=== PATIENT | female | born 1930 | race Caucasian/White ===

== ENCOUNTER 2016-11-25 12:07 | Inpatient (IN) | payer OTHER ==
[2016-11-25] MEDS ORDERED: KETOROLAC TROMETHAMINE 60 MG/2 ML VIAL IM ONE (12:24)
--- NOTE | 2016-11-25 12:25 | PDOC ---
History of Present Illness - General Chief Complaint: Injury Stated Complaint: left knee pain Time Seen by Provider: 11/25/16 12:15 - History of Present Illness Initial Comments: 11/25/16 13:49 Chief complaint: Left knee pain History of present illness: Patient tripped and fell this morning, injuring her left knee. She was unable to arise and walk, so she dragged herself along the floor and called 911. There was no loss of consciousness. There was no subsequent confusion, probably bladder incontinence, head or neck pain. Review of systems: Denies any other injuries or pain including injuries or pain to the head neck chest abdomen spine and pelvis or other extremities. Denies chest pain, shortness of breath, abdominal pain, nausea, vomiting, diarrhea, visual or focal neurologic symptoms, unsteadiness of gait, vaginal bleeding or discharge, urinary tract symptoms Past medical history: Knee replacement, hip replacement, arthritis with chronic pain, high blood pressure, elevated cholesterol, mood disorder Medications: Losartan, atenolol, Lipitor, allopurinol, hydralazine, pramipexole , allopurinol, regular strength aspirin, gabapentin, tramadol, vitamins Social history: Lives alone, cares for self, ambulate adequately. No alcohol or tobacco, or nonprescription drugs Family history: Reviewed and noncontributory including bone and joint disease, early coronary artery disease, metabolic disease including diabetes, and cancer. Exam: Alert and oriented 3, well-developed well-nourished, moderate distress due to pain in the left knee, but cooperative Afebrile, vital signs stable Head atraumatic. PERRLA, fundi benign, ENT clear Neck supple without bruit mass or nodes. No point tenderness of the cervical spine, good range of motion without pain Chest clear to P&A. No chest wall or rib cage tenderness or deformity CV S1 and S2 distant 2/6 systolic ejection murmur left sternal border without radiation pulses full and JVD or edema Abdomen benign Neurological generalized weakness but no focal sensory or motor deficits. Cranial nerves intact. Unable to ambulate due to pain in the left knee Skin clear, no rash, adequate turgor and what mucous membranes Extremities: There is shortening and external rotation of the left lower extremity. There is a scar over the knee suggestive of a prior knee replacement. There is swelling and tenderness over the distal femur just above the knee. The extensor mechanism appears to be disrupted above the knee. Pulses are full below the knee. The foot is warm. There are no sensory or motor deficits below the knee Impression: Probable distal femur fracture at site of prosthetic device. Plan: X-ray and further orthopedic management depending on results. 11/25/16 13:56 Past History - Past Medical History Allergies/Adverse Reactions: Allergies Allergy/AdvReac Type Severity Reaction Status Date / Time No Known Allergies Allergy Verified 05/01/16 09:10 Home Medications: Ambulatory Orders Atenolol [Tenormin -] 50 mg PO BID #0 tablet 07/26/13 Atorvastatin Ca [Lipitor] 10 mg PO HS #0 tablet 09/13/13 Paroxetine HCl [Paxil -] 20 mg PO DAILY #0 tablet 09/13/13 Losartan Potassium 50 mg PO BID 04/21/16 Allopurinol [Zyloprim -] 100 mg PO DAILY 11/25/16 Aspirin [ASA -] 325 mg PO DAILY 11/25/16 Gabapentin [Neurontin -] 100 mg PO HS 11/25/16 Hydralazine HCl [Apresoline -] 50 mg PO BID 11/25/16 [place] Xl 2 cap PO DAILY 11/25/16 Pramipexole Di-HCl [Mirapex] 0.5 mg PO DAILY 11/25/16 Tramadol HCl [Ultram] 50 mg PO TID 11/25/16 Vits A,C,E/Lutein/Minerals [Ocuvite Tablet] 1 each PO DAILY 11/25/16 Anemia: Yes (arthritis) Asthma: No Cancer: No Cardiac Disorders: No CVA: No COPD: No CHF: No Dementia: No Diabetes: No GI Disorders: No Disorders: No HTN: Yes Hypercholesterolemia: Yes Liver Disease: No Psychiatric Problems: Yes (ANXIETY.) Seizures: No Thyroid Disease: No - Surgical History Abdominal Surgery: No Appendectomy: No Cardiac Surgery: No Cholecystectomy: No Lung Surgery: No Neurologic Surgery: No Orthopedic Surgery: Yes (Shoulder/left knee) - Immunization History Immunization Up to Date: Yes - Psycho/Social/Smoking Cessation Hx Anxiety: No Suicidal Ideation: No Smoking Status: No Smoking History: Never smoked Have you smoked in the past 12 months: No Number of Cigarettes Smoked Daily: 0 Hx Alcohol Use: No Drug/Substance Use Hx: No Substance Use Type: Alcohol Hx Substance Use Treatment: No ED Treatment Course - LABORATORY CBC & Chemistry Diagram: 11/25/16 13:40 11/25/16 13:40 Medical Decision Making - Medical Decision Making 11/25/16 13:38 X-ray reveals a fracture of the distal femur just above the knee prosthesis. There is angulation. The fracture is closed. Dr. Wei, the patient's orthopedist, was contacted by phone. He recommends gentle traction and application of a knee immobilizer. He will see patient later in the day and discuss the options for surgery Gentle traction was applied to the calf and a knee immobilizer was placed in position. It is not an optimal fit due to the circumference of the patient's thigh, but it holds the knee in neutral position, and was utilized along with an Alex bandage. After splinting, the patient was completely comfortable, reporting no distal numbness tingling or pain. Distal pulses were full. The foot was warm. There were no demonstrable sensory or motor deficits. Dr. Franz the patient's primary physician, was contacted by phone. He recommends contacting Dr. Glass for admission. Dr. Glass was paged. Awaiting response 11/25/16 13:47 11/25/16 14:01 returned the call. He requests the patient be admitted to the hospitalist *DC/Admit/Observation/Transfer Diagnosis at time of Disposition: Fracture, femur, distal Qualifiers: Encounter type: initial encounter Fracture type: closed Fracture morphology: other fracture Laterality: left Qualified Code(s): S72.492A - Other fracture of lower end of left femur, initial encounter for closed fracture - Discharge Dispostion Admit: Yes
[2016-11-25] MEDS ORDERED: KETOROLAC TROMETHAMINE 30 MG/1 ML VIAL ONE (12:27)
[2016-11-25 14:16] LABS: EOSINOPHIL 0.5 % (0-4.5); MCH 28.4 pg (25.7-33.7); MEAN PLT VOLUME 9.7 fl (7.5-11.1); NEUTROPHILS 83.4 % (42.8-82.8); PLATELET COUNT 229 K/MM3 (134-434); RDW 14.9 % (11.6-15.6)
[2016-11-25 14:19] LABS: ALBUMIN 4.3 g/dl (3.5-5.0); ALK PHOS 86 U/L (32-92); ANION GAP 6 (8-16); CALCIUM 9.6 mg/dl (8.4-10.2); CO2 24 mmol/L (22-28); GLUCOSE,RANDOM 113 mg/dl (74-106); SGOT/AST 36 U/L (10-42); SGPT/ALT 17 U/L (10-40); TOT PROT 7.5 g/dl (6.4-8.3)
[2016-11-25] MEDS ORDERED: ACETAMINOPHEN 325 MG TABLET (FP) PO PRN (14:20)
[2016-11-25] MEDS ORDERED: ONDANSETRON 4 MG/2 ML VIAL IVPB PRN (14:20)
[2016-11-25 14:21] LABS: BILIRUBIN,TOTAL < 0.3 mg/dl (0.2-1.0)
--- NOTE | 2016-11-25 14:35 | CONSULT ---
Consult - text type - Consultation Consultation Note: Ortho full consult dictated by Dr. Rowan a/p- OR tomorrow for distal femur replacement NPO Surgical clearance
[2016-11-25] MEDS ORDERED: ACETAMINOPHEN 325 MG TABLET (FP) PO ONE (14:42)
[2016-11-25 17:55] LABS: INR 1.06 (0.82-1.09); PROTHROMBIN TIME (PATIENT) 11.9 SEC (10.2-13.0)
--- NOTE | 2016-11-25 18:08 | CONS ---
DATE OF CONSULTATION:11/25/2016 DATE OF DICTATION: 11/25/2016 EMERGENCY ROOM ORTHOPEDIC CONSULTATION REASON FOR CONSULTATION: Orthopedic emergency room consultation/[facility]. HISTORY OF PRESENT ILLNESS: Patient is an 86-year-old female well known to our practice. Patient is status post left total knee replacement done by Dr. Barry approximately 4 years ago. Patient slipped and fell, and today is complaining of severe pain in her left knee. She was taken by EMS to [facility] emergency room where orthopedic consultation was performed. Patient has been in relatively good medical shape and has seen her medical doctor last week. On no anticoagulation. PHYSICAL EXAMINATION: She has soft, nontender. Good motion of her ankle and toes, neurovascularly intact. No tenderness up in the pelvis, the hip region. Marked increased pain with any range of motion of her left knee. X-rays taken today in the emergency room show a left distal periprosthetic distal femur fracture just right above the femoral component. IMPRESSION: Left distal periprosthetic femur fracture just above the component. PLAN: Due to the fact that there is minimal if any bone adherent to the distal femoral component, best option is a distal femoral replacement surgery. Discussed risks, benefits, and alternatives with the patient in detail. The patient is eager to go forward with the operation tomorrow to optimize her and will book her for surgery tomorrow. KYUNG GILBERT M.D. [id number] MTDD
[2016-11-25 18:20] VITALS: BMI 34.7
--- NOTE | 2016-11-25 19:43 | HP ---
CHIEF COMPLAINT: s/p Fall, Left Knee Pain PCP: Dr. Marshall HISTORY OF PRESENT ILLNESS: This is a 86 y/o female with a past medical history of Hypertension, Hyperlipidemia, Anxiety, Arthritis. Who presents to the ED s/p slip and fall with Left knee pain x 3 days. Patient reports while standing her knee began to buckle, causing her to fall. Patient reports being non-weight bearing since the fall. She denies LOC. Patient denies fever, chills, cough, dizziness, CP, AP, N/ V/D, constipation, dysuria. ER course was notable for: (1) Left knee Xray- Left distal periprosthetic distal femur fx (2) BUN 26 (3) WBC 12 Recent Travel: None PAST MEDICAL HISTORY: Hypertension Hyperlipidemia Anxiety Arthritis PAST SURGICAL HISTORY: Left Knee Replacement Social History: Smoking: Never Alcohol: None Drugs: None Lives alone, retired Family History: Mother: HTN Allergies No Known Allergies Allergy (Verified 05/01/16 09:10) HOME MEDICATIONS: Home Medications Medication Instructions Recorded Atenolol [Tenormin -] 50 mg PO BID #0 tablet 07/26/13 Atorvastatin Ca [Lipitor] 10 mg PO HS #0 tablet 09/13/13 Paroxetine HCl [Paxil -] 20 mg PO DAILY #0 tablet 09/13/13 Losartan Potassium 50 mg PO BID 04/21/16 Allopurinol [Zyloprim -] 100 mg PO DAILY 11/25/16 Aspirin [ASA -] 325 mg PO DAILY 11/25/16 Gabapentin [Neurontin -] 100 mg PO HS 11/25/16 Hydralazine HCl [Apresoline -] 50 mg PO BID 11/25/16 [place] Xl 2 cap PO DAILY 11/25/16 Pramipexole Di-HCl [Mirapex] 0.5 mg PO DAILY 11/25/16 Tramadol HCl [Ultram] 50 mg PO TID 11/25/16 Vits A,C,E/Lutein/Minerals 1 each PO DAILY 11/25/16 [Ocuvite Tablet] REVIEW OF SYSTEMS CONSTITUTIONAL: Absent: fever, chills, diaphoresis, generalized weakness, malaise, loss of appetite, weight change HEENT: Absent: rhinorrhea, nasal congestion, throat pain, throat swelling, difficulty swallowing, mouth swelling, ear pain, eye pain, visual changes CARDIOVASCULAR: Absent: chest pain, syncope, palpitations, irregular heart rate, lightheadedness , peripheral edema RESPIRATORY: Absent: cough, shortness of breath, dyspnea with exertion, orthopnea, wheezing, stridor, hemoptysis GASTROINTESTINAL: Absent: abdominal pain, abdominal distension, nausea, vomiting, diarrhea, constipation, melena, hematochezia GENITOURINARY: Absent: dysuria, frequency, urgency, hesitancy, hematuria, flank pain, genital pain MUSCULOSKELETAL: arthralgia, joint swelling, left knee pain Absent: myalgia, back pain, neck pain SKIN: Absent: rash, itching, pallor HEMATOLOGIC/IMMUNOLOGIC: Absent: easy bleeding, easy bruising, lymphadenopathy, frequent infections ENDOCRINE: Absent: unexplained weight gain, unexplained weight loss, heat intolerance, cold intolerance NEUROLOGIC: Absent: headache, focal weakness or paresthesias, dizziness, unsteady gait, seizure, mental status changes, bladder or bowel incontinence PSYCHIATRIC: Absent: anxiety, depression, suicidal or homicidal ideation, hallucinations. PHYSICAL EXAMINATION Vital Signs - 24 hr 11/25/16 11/25/16 17:32 17:50 Temperature 99.1 F 98.4 F Pulse Rate 83 Pulse Rate [ 83 Right] Respiratory 17 18 Rate Blood Pressure 150/58 Blood Pressure 133/70 [Left Arm] O2 Sat by Pulse 96 93 L Oximetry (%) GENERAL: Awake, alert, and fully oriented, in no acute distress. HEAD: Normal with no signs of trauma. EYES: Pupils equal, round and reactive to light, extraocular movements intact, sclera anicteric, conjunctiva clear. No lid lag. EARS, NOSE, THROAT: Ears normal, nares patent, oropharynx clear without exudates. Moist mucous membranes. NECK: Normal range of motion, supple without lymphadenopathy, JVD, or masses. LUNGS: Breath sounds equal, clear to auscultation bilaterally. No wheezes, and no crackles. No accessory muscle use. HEART: Regular rate and rhythm, normal S1 and S2 without murmur, rub or gallop. ABDOMEN: Soft, nontender, not distended, normoactive bowel sounds, no guarding, no rebound, no masses. No hepatomegaly or splenomegaly. MUSCULOSKELETAL: Normal range of motion at RUE, RLE, LUE joints. LROM LLE. No bony deformities. No CVA tenderness. LROM LLE, popiteal tenderness, +external rotation, shortening. UPPER EXTREMITIES: 2+ pulses, warm, well-perfused. No cyanosis. No clubbing. No peripheral edema. LOWER EXTREMITIES: 2+ pulses, warm, well-perfused. No calf tenderness. No peripheral edema. NEUROLOGICAL: Cranial nerves II-XII intact. Normal speech. Normal gait. PSYCHIATRIC: Cooperative. Good eye contact. Appropriate mood and affect. SKIN: Warm, dry, normal turgor, no rashes or lesions noted, normal capillary refill. Laboratory Tests 11/25/16 11/25/16 11/25/16 13:40 13:40 17:26 WBC 12.0 H RBC 5.08 Hgb 14.4 Hct 43.6 MCV 86.0 MCHC 33.0 RDW 14.9 Plt Count 229 MPV 9.7 Neutrophils % 83.4 H Lymphocytes % 9.5 Monocytes % 5.6 Eosinophils % 0.5 Basophils % 1.0 INR 1.06 Sodium 139 Potassium 4.5 Chloride 109 H Carbon Dioxide 24 Anion Gap 6 L BUN 26 H Creatinine 1.0 Creat Clearance w eGFR 52.45 Random Glucose 113 H Calcium 9.6 Total Bilirubin < 0.3 AST 36 ALT 17 Alkaline Phosphatase 86 Total Protein 7.5 Albumin 4.3 Anti-A Titer Blood Type Antibody Screen Spec Expiration Date 11/25/16 17:26 WBC RBC Hgb Hct MCV MCHC RDW Plt Count MPV Neutrophils % Lymphocytes % Monocytes % Eosinophils % Basophils % INR Sodium Potassium Chloride Carbon Dioxide Anion Gap BUN Creatinine Creat Clearance w eGFR Random Glucose Calcium Total Bilirubin AST ALT Alkaline Phosphatase Total Protein Albumin Anti-A Titer Cancelled Blood Type Cancelled Antibody Screen Cancelled Spec Expiration Date Cancelled ASSESSMENT/PLAN: This is a 86 y/o female with a PMHx of: Hypertension, Hyperlipidemia, Arthritis , Anxiety. Presented to the ED s/p Slip and Fall, with left knee pain. Admitted for Left Distal Femur Fracture for further evaluation of their emergent condition. Problem List - Problem (1) Fracture, femur, distal Assessment/Plan: - s/p mechanical fall - Xray L-knee- left distal periprosthetic distal femur fracture - Ortho following- OR in am - NPO after midnight - Gentle IVF - Pain Control-Tylenol, Ultram - Knee Immobilizer- for stability - Monitor vitals - Pulse Check - PT Code(s): S72.409A - UNSP FRACTURE OF LOWER END OF UNSP FEMUR, INIT FOR CLOS FX Qualifiers: Encounter type: initial encounter Fracture type: closed Fracture morphology: other fracture Laterality: left Qualified Code(s): S72.492A - Other fracture of lower end of left femur, initial encounter for closed fracture (2) HTN (hypertension) Assessment/Plan: - Controlled - Monitor BP - Continue Cozaar, Hydralazine Code(s): I10 - ESSENTIAL (PRIMARY) HYPERTENSION (3) HLD (hyperlipidemia) Assessment/Plan: - Continue Lipitor Code(s): E78.5 - HYPERLIPIDEMIA, UNSPECIFIED (4) Anxiety Assessment/Plan: - Continue Paxil Code(s): F41.9 - ANXIETY DISORDER, UNSPECIFIED (5) Arthritis Assessment/Plan: - Continue home med Code(s): M19.90 - UNSPECIFIED OSTEOARTHRITIS, UNSPECIFIED SITE (6) DVT prophylaxis Assessment/Plan: - SCDs Code(s): JME5323 - Visit type - Emergency Visit Emergency Visit: Yes ED Registration Date: 11/25/16 Care time: The patient presented to the Emergency Department on the above date and was hospitalized for further evaluation of their emergent condition. - New Patient This patient is new to me today: Yes Date on this admission: 11/25/16 - Critical Care Critical Care patient: No
[2016-11-25] MEDS: traMADol HCL 50 MG TABLET PO SCH (21:23)
[2016-11-25] MEDS: ATENOLOL 50 MG TABLET (FP) PO SCH (21:24)
[2016-11-25] MEDS: ATORVASTATIN CA 10 MG TABLET (FP) PO SCH (21:24)
[2016-11-25] MEDS: GABAPENTIN 100 MG CAPSULE (FP) PO SCH (21:24)
[2016-11-25] MEDS: hydrALAZINE HCL 50 MG TABLET (FP) PO SCH (21:24)
[2016-11-25] MEDS: LOSARTAN POTASSIUM 50 MG TABLET (FP) PO SCH (21:24)
[2016-11-25 22:07] LABS: PH,URINE 5.5 (4.5-8); URINE APPEARANCE Clear; URINE BILIRUBIN 1+ (NEGATIVE); URINE BLOOD Negative (NEGATIVE); URINE GLUCOSE (UA) Negative (NEGATIVE); URINE KETONE Negative (NEGATIVE); URINE LEUK ESTERASE Negative (NEGATIVE); URINE NITRITE Negative (NEGATIVE); URINE PROTEIN Negative (NEGATIVE); URINE UROBILINOGEN 0.2 E.U/dl (0.2-1.0)
[2016-11-25 22:26] LABS: URINE COLOR YELLOW
[2016-11-25] MEDS ORDERED: morphine CARPU-JECT 2 MG/1 ML DISP.SYRIN IVPUSH ONE (23:54)
[2016-11-26] MEDS: LACTATED RINGERS SOLUTION 1,000 ML IV SCH (01:25)
[2016-11-26] MEDS: traMADol HCL 50 MG TABLET PO SCH ×3 (05:21→21:46)
--- NOTE | 2016-11-26 07:51 | PN ---
Physical Exam: SUBJECTIVE: Patient seen and examined, patient reports pain upon movement of the left lower extremity denies any chest pain or shortness of breath knee immobilizer in place OBJECTIVE: patient is a 86 y/o female with a past medical history of Hypertension, Hyperlipidemia, Anxiety, Arthritis. patient was admitted from the emergency department for distal left femur fracture Vital Signs Period Temp Pulse Resp BP Sys/Barr Pulse Ox Last 24 Hr 98.4 F-99.1 F 82-86 17-20 133-150/57-70 93-96 GENERAL: The patient is awake, alert, and fully oriented, in no acute distress. HEAD: Normal with no signs of trauma. EYES: PERRL, extraocular movements intact, sclera anicteric, conjunctiva clear. No ptosis. ENT: Ears normal, nares patent, oropharynx clear without exudates, moist mucous membranes. NECK: Trachea midline, full range of motion, supple. LUNGS: Breath sounds equal, clear to auscultation bilaterally, no wheezes, no crackles, no accessory muscle use. HEART: Regular rate and rhythm, S1, S2 without murmur, rub or gallop. ABDOMEN: Soft, nontender, nondistended, normoactive bowel sounds, no guarding, no rebound, no hepatosplenomegaly, no masses. EXTREMITIES: 2+ pulses, warm, well-perfused, no edema. LEFT LOWER EXTREMITY: point tenderness noted to left lateral thigh, less than 2 second capillary refill +4 pupils NEUROLOGICAL: Cranial nerves II through XII grossly intact. Normal speech, gait not observed. PSYCH: Normal mood, normal affect. SKIN: Warm, dry, normal turgor, no rashes or lesions noted Laboratory Results - last 24 hr 11/25/16 11/25/16 11/25/16 17:26 17:26 18:28 INR 1.06 Urine Color Urine Appearance Urine pH Ur Specific [place] Urine Protein Urine Glucose (UA) Urine Ketones Urine Blood Urine Nitrite Urine Bilirubin Urine Urobilinogen Ur Leukocyte Esterase Anti-A Titer Cancelled Blood Type Cancelled A POSITIVE Antibody Screen Cancelled Negative Spec Expiration Date Cancelled 11/25/16 21:59 INR Urine Color Yellow Urine Appearance Clear Urine pH 5.5 Ur Specific [place] 1.025 Urine Protein Negative Urine Glucose (UA) Negative Urine Ketones Negative Urine Blood Negative Urine Nitrite Negative Urine Bilirubin 1+ H Urine Urobilinogen 0.2 e.u/dl Ur Leukocyte Esterase Negative Anti-A Titer Blood Type Antibody Screen Spec Expiration Date Active Medications Generic Name Dose Route Start Last Admin Trade Name Freq PRN Reason Stop Dose Admin Acetaminophen 650 mg 11/25/16 14:20 Tylenol - PO Q4H PRN FEVER OR PAIN Allopurinol 100 mg 11/26/16 10:00 Zyloprim - PO DAILY JORDYN Atenolol 50 mg 11/25/16 22:00 11/25/16 21:24 Tenormin - PO 50 mg BID JORDYN Administration Atorvastatin Calcium 10 mg 11/25/16 22:00 11/25/16 21:24 Lipitor - PO 10 mg HS JORDYN Administration Gabapentin 100 mg 11/25/16 22:00 11/25/16 21:24 Neurontin - PO 100 mg HS JORDYN Administration Hydralazine HCl 50 mg 11/25/16 22:00 11/25/16 21:24 Apresoline - PO 50 mg BID JORDYN Administration Lactated Ringer's 1,000 mls @ 42 mls/hr 11/26/16 00:01 11/26/16 01:25 Lactated Ringers Solution IV 42 mls/hr ASDIR JORDYN Administration Losartan Potassium 50 mg 11/25/16 22:00 11/25/16 21:24 Cozaar - PO 50 mg BID JORDYN Administration Non-Formulary Medication 1 each 11/26/16 10:00 Vits A,C,E/Lutein/Minerals [Ocuvite With Lutein Tablet] PO DAILY [facility] Ondansetron HCl 4 mg 11/25/16 14:20 Zofran Injection IVPB Q6H PRN NAUSEA Paroxetine HCl 20 mg 11/26/16 10:00 Paxil - PO DAILY [facility] Pramipexole Dihydrochloride 0.5 mg 11/26/16 10:00 Mirapex - PO DAILY [facility] Tramadol HCl 50 mg 11/25/16 22:00 11/26/16 05:21 Ultram - PO 12/02/16 21:59 Not Given TID JORDYN Imaging Xray L-knee- left distal periprosthetic distal femur fracture ASSESSMENT/PLAN: 1) ortho left distal femur fracture - continue knee immobilizer at all times - Pending OR today in the a.m. (Lent) - continue neurovascular checks - When necessaryUltram 2) card Hypertension -Continue Cozaar and hydralazine -Blood pressure remains at goal hyperlipidemia - lFTs WNL continue Lipitor 3) psych anxiety - continue paxial f/e/n - npo - ivf ppx -protonix - hold AC -->OR - PT as per ortho dispoi: requires inpatient care Visit type - Emergency Visit Emergency Visit: Yes ED Registration Date: 11/25/16 Care time: The patient presented to the Emergency Department on the above date and was hospitalized for further evaluation of their emergent condition. - New Patient This patient is new to me today: Yes Date on this admission: 11/26/16 - Critical Care Critical Care patient: No - Discharge Referral Referred to [facility] Med P.C.: No
[2016-11-26] MEDS ORDERED: DEXAMETHASONE SOD PHOSPHATE/PF 10 MG/ML SDV ONE ×2 (09:51→09:59)
[2016-11-26] MEDS ORDERED: MIDAZOLAM HCL 2 MG/2 ML SINGLE DOSE VIAL ONE ×3 (09:51→11:21)
[2016-11-26] MEDS ORDERED: ceFAZolin SODIUM 1 GM VIAL ONE (09:52)
[2016-11-26] MEDS ORDERED: VANCOMYCIN 1,000 MG VIAL (RESTRICTED TO ID ONLY) ONE (09:52)
[2016-11-26] MEDS ORDERED: ROPIVACAINE HCL 0.5% 30ML VIAL ONE (09:52)
[2016-11-26] MEDS ORDERED: SODIUM CHLORIDE 0.9% P/F 10 ML VIAL IJ ONE (09:52)
[2016-11-26 09:58] LABS: BASOPHIL 0.4 % (0-2.0); EOSINOPHIL 2.8 % (0-4.5); MCH 28.1 pg (25.7-33.7); MCHC 33.1 g/dl (32.0-36.0); MEAN CELL VOLUME 84.9 fl (80-96); MEAN PLT VOLUME 9.5 fl (7.5-11.1); NEUTROPHILS 75.4 % (42.8-82.8); PLATELET COUNT 188 K/MM3 (134-434); RDW 14.9 % (11.6-15.6); WHITE BLOOD COUNT 9.4 K/mm3 (4.0-10.0)
[2016-11-26 10:08] LABS: ALBUMIN 3.6 g/dl (3.5-5.0); BILIRUBIN,TOTAL 0.8 mg/dl (0.2-1.0); CALCIUM 9.1 mg/dl (8.4-10.2); MAGNESIUM 1.9 mg/dL (1.8-2.4); PHOSPHOROUS 3.6 mg/dl (2.5-4.6); TOT PROT 6.5 g/dl (6.4-8.3)
[2016-11-26] MEDS ORDERED: PROPOFOL 20 ML ONE ×2 (10:33)
[2016-11-26] MEDS ORDERED: BUPIVACAINE HCL/PF 0.5% (5MG/ML) 10 ML VIAL ONE (10:34)
[2016-11-26] MEDS: hydrALAZINE HCL 50 MG TABLET (FP) PO SCH ×2 (10:47→21:44)
[2016-11-26] MEDS: PRAMIPEXOLE DIHYDROCHLORIDE 0.25 MG TABLET PO SCH (10:47)
[2016-11-26] MEDS: LOSARTAN POTASSIUM 50 MG TABLET (FP) PO SCH ×2 (10:47→21:44)
[2016-11-26] MEDS: ATENOLOL 50 MG TABLET (FP) PO SCH ×2 (10:48→21:45)
[2016-11-26] MEDS: PARoxetine HCL 20 MG TABLET (FP) PO SCH (10:48)
[2016-11-26] MEDS: ALLOPURINOL 100 MG TABLET (FP) PO SCH (10:48)
[2016-11-26] MEDS ORDERED: VANCOMYCIN 1,000 MG VIAL (RESTRICTED TO ID ONLY) IVPB ONE (12:16)
[2016-11-26] MEDS ORDERED: ROPIVACAINE 0.2% 400ML 400 ML ML NR ONE (12:36)
--- NOTE | 2016-11-26 12:38 | EKG ---
Test Reason : Blood Pressure : / mmHG Vent. Rate : 083 BPM Atrial Rate : 083 BPM P-R Int : 156 ms QRS Dur : 082 ms QT Int : 374 ms P-R-T Axes : 063 030 039 degrees QTc Int : 439 ms POOR DATA QUALITY, INTERPRETATION MAY BE ADVERSELY AFFECTED NORMAL SINUS RHYTHM NORMAL ECG WHEN COMPARED WITH ECG OF 06-SEP-2013 19:53, NO SIGNIFICANT CHANGE WAS FOUND Confirmed by SILVIA TOVAR MD ([id number]) on 11/26/2016 12:37:35 PM Referred By: DR VAZQUEZ Confirmed By:SILVIA TOVAR MD
--- NOTE | 2016-11-26 12:56 | OP ---
Operative Note - Note: Operative Date: 11/26/16 ([email or web address]) Pre-Operative Diagnosis: left periprosthetic distal femur fx Operation: left distal femur replacement Post-Operative Diagnosis: Same as Pre-op Surgeon: Steve Rowan Ski Tow Operator: Tl De La Garza Anesthesiologist/LEAD SYSTEMS ANALYST: Allen Lamar Anesthesia: Spinal, Local Specimens Removed: distal femur with component, tibial component Estimated Blood Loss (mls): 200 (tourniquet) Operative Report Dictated: Yes
[2016-11-26] MEDS ORDERED: ACETAMINOPHEN 325 MG TABLET (FP) ONE (13:57)
[2016-11-26] MEDS: ACETAMINOPHEN 325 MG TABLET (FP) PO SCH ×2 (14:00→21:47)
[2016-11-26] MEDS: oxyCODONE HCL 5 MG TABLET PO PRN ×3 (15:21→23:46)
[2016-11-26] MEDS: CEFAZOLIN 2 GM/D5W 50 ML IVPB SCH (18:54)
[2016-11-26] MEDS: ATORVASTATIN CA 10 MG TABLET (FP) PO SCH (21:44)
[2016-11-26] MEDS: SENNOSIDES/DOCUSATE COMBO (SENNA PLUS) TABLET (UD) PO SCH (21:45)
[2016-11-26] MEDS: GABAPENTIN 100 MG CAPSULE (FP) PO SCH (21:45)
[2016-11-27] MEDS: LACTATED RINGERS SOLUTION 1,000 ML IV SCH (01:36)
[2016-11-27] MEDS: CEFAZOLIN 2 GM/D5W 50 ML IVPB SCH (01:36)
[2016-11-27] MEDS: ACETAMINOPHEN 325 MG TABLET (FP) PO SCH ×4 (01:38→22:24)
[2016-11-27] MEDS: oxyCODONE HCL 5 MG TABLET PO PRN (06:21)
[2016-11-27] MEDS: traMADol HCL 50 MG TABLET PO SCH ×3 (06:21→22:26)
--- NOTE | 2016-11-27 07:52 | PN ---
Progress Note (short form) - Note Progress Note: Ortho Pt seen and examined s/p left distal femur replacement pod #1 Selected Entries 11/27/16 07:31 Temperature 99.0 F Pulse Rate 84 Respiratory 18 Rate Blood Pressure 117/39 dressing c/d/i, calf soft, nt rom 0-30, nvi cbc pending a/p PT dvt ppx pain control d/c planning
[2016-11-27] MEDS: ASPIRIN 325 MG TABLET PO SCH (08:05)
[2016-11-27 08:17] LABS: BASOPHIL 0.3 % (0-2.0); EOSINOPHIL 0.7 % (0-4.5); MCH 28.8 pg (25.7-33.7); MCHC 33.4 g/dl (32.0-36.0); MEAN CELL VOLUME 86.1 fl (80-96); MEAN PLT VOLUME 9.8 fl (7.5-11.1); NEUTROPHILS 78.3 % (42.8-82.8); PLATELET COUNT 158 K/MM3 (134-434); RDW 15.1 % (11.6-15.6); WHITE BLOOD COUNT 12.9 K/mm3 (4.0-10.0)
[2016-11-27 08:40] LABS: ALBUMIN 2.9 g/dl (3.5-5.0); BILIRUBIN,TOTAL 0.6 mg/dl (0.2-1.0); CALCIUM 8.4 mg/dl (8.4-10.2); CREATININE 1.1 mg/dl (0.6-1.3); MAGNESIUM 1.7 mg/dL (1.8-2.4); PHOSPHOROUS 3.9 mg/dl (2.5-4.6); TOT PROT 5.3 g/dl (6.4-8.3)
--- NOTE | 2016-11-27 09:15 | OP ---
DATE OF OPERATION: 11/26/2016 PREOPERATIVE DIAGNOSIS: Left distal femoral periprosthetic femur fracture above a left total knee replacement. POSTOPERATIVE DIAGNOSIS: Left distal femoral periprosthetic femur fracture above a left total knee replacement. PROCEDURE: Revision left total knee replacement with distal femoral replacement. SURGICAL ATTENDING: Steve Rowan MD DIPPER OPERATOR: HEIDY Rosa ANESTHESIA: Regional and spinal. CLOSURE: Rk distal femoral replacement with a medium body, a +30 augment of distal femur, a 127 x 11 mm femoral whit, a 127 x 14 mm tibial whit with medium base plate, and a 10 polyethylene, No. 1 Vicryl fascia, 0 and 2-0 subcutaneous, and 3-0 Monocryl subcuticular with skin glue for skin. ESTIMATED BLOOD LOSS: About 150 mL. TOURNIQUET TIME: Approximately an hour and a half. COMPLICATIONS: None. CONDITION: To recovery room in stable condition. DESCRIPTION OF PROCEDURE: Patient was taken to the operating room on November 26, 2016. Spinal and regional anesthesia was administered by the anesthesiologist. IV Kefzol was prophylactic prior to the case. A well-padded pneumatic tourniquet was placed on the left proximal femur. The left lower extremity was prepped and draped in the usual sterile fashion. The previous surgeon made a curvilinear incision over the anterior midline of the knee. We followed the same incision and extended it more proximally and distally. Incision was carried down to the level of the extensor mechanism with sufficient flaps medially and laterally to perform the procedure. Medial parapatellar arthrotomy was then performed, and the patella was inverted, and the knee was flexed up. The fracture was found to be just above the femoral component and propagated proximally. Using subperiosteal dissection and staying on the bone with the Bovie, the proximal femur was skeletonized from its soft tissue and delivered from the wound. The distal femur was then osteotomized at the lowest level possible above where the spikes of bone from the comminution were to get a firm tubular structure distally. The tibial component was undermined with ribbon osteotomes and then was removed. All cement in the region was removed. Most of it came off with the tibial component, but what residual there was on the proximal tibial was removed. A skin cut was made just to freshen the bone there. Intramedullary reaming of both the tibia and femur was performed until a 13 reamer got good chatter on the femur and a 16 got good chatter on the tibia. A trial reduction with an 11 x 127 femoral whit and 30 extension and a medium body along with a 14 x 127 tibial stem with a medium tibial baseplate and a 10 mm polyethylene achieved good extension with no undue tightness on the structures, good level of the patella in the groove restoring the joint line, and having good stability. The trial components were removed. The real components were then cemented in using modern generation cement techniques with antibiotic cement. It was pressurized in extension, and all excess cement was removed. After the cement was hardened, the knee was thoroughly inspected to remove all excess cement. The real hinge, rotating hinge, was then applied and deployed and clipped into place. Range of motion revealed good stability throughout with range of motion from 0 to 130 degrees of flexion with excellent tracking of the patella. The knee was pulse antibiotic irrigated. The patellar button, which was placed from the previous surgery, was left in situ as it was well fixated. Vancomycin powder was placed inside the knee. The medial parapatellar arthrotomy was then closed using No. 1-0 Vicryl interrupted suture. The knee went through a range of motion and found to have good stability throughout and good tracking of the patella. The subcutaneous was pulse antibiotic irrigated and closed with 0 and 2-0 Vicryl, and 3-0 Monocryl subcuticular for skin with skin glue. Sterile pressure Aquacel dressing was applied. The patient was awakened from anesthesia and transferred to the recovery room in stable condition. There were no complications. Estimated blood loss was less than 100 mL. Total tourniquet time was approximately 90 minutes. Branden D ELA [id number]
[2016-11-27] MEDS ORDERED: MAGNESIUM SULFATE 2 GM in SODIUM CHLORIDE 100 ML IVPB ONE (09:22)
[2016-11-27] MEDS ORDERED: MAGNESIUM SULF 50% (8.12 MEQ/2 ML-1 GM VIAL) IVPB ONE (09:45)
[2016-11-27] MEDS: hydrALAZINE HCL 50 MG TABLET (FP) PO SCH ×2 (09:58→22:24)
[2016-11-27] MEDS: SENNOSIDES/DOCUSATE COMBO (SENNA PLUS) TABLET (UD) PO SCH ×2 (09:58→22:24)
[2016-11-27] MEDS: PANTOPRAZOLE 40 MG TABLET (FP) PO SCH (09:58)
[2016-11-27] MEDS: LOSARTAN POTASSIUM 50 MG TABLET (FP) PO SCH ×2 (09:58→22:24)
[2016-11-27] MEDS: ATENOLOL 50 MG TABLET (FP) PO SCH ×2 (09:58→22:24)
[2016-11-27] MEDS: MULTIVITAMINS (DAILY MVI) TABLET (FP) PO SCH (09:58)
[2016-11-27] MEDS: PRAMIPEXOLE DIHYDROCHLORIDE 0.25 MG TABLET PO SCH (09:58)
[2016-11-27] MEDS: PARoxetine HCL 20 MG TABLET (FP) PO SCH (09:59)
[2016-11-27] MEDS: ALLOPURINOL 100 MG TABLET (FP) PO SCH (10:00)
--- NOTE | 2016-11-27 10:47 | PN ---
Progress Note (short form) - Note Progress Note: S: Pt. comfortable in bed O: VAS 5/10. no anterior pain A/P: pod#1 s/p left distal femur replacement with adductor canal catheter 1. Pt. doing well 2. continue pain meds as ordered
--- NOTE | 2016-11-27 13:24 | PN ---
Physical Exam: SUBJECTIVE: Patient seen and examined, patient reports feeling well, ambulatory in hallway with PT with walker with 1 person. OBJECTIVE:patient is a 86 y/o female with a past medical history of Hypertension, Hyperlipidemia, Anxiety, Arthritis. patient was admitted from the emergency department for distal left femur fracture Vital Signs Period Temp Pulse Resp BP Sys/Barr Pulse Ox Last 24 Hr 17 F-99.0 F 78-100 15-18 114-148/39-77 95-100 GENERAL: The patient is awake, alert, and fully oriented, in no acute distress. HEAD: Normal with no signs of trauma. EYES: PERRL, extraocular movements intact, sclera anicteric, conjunctiva clear. No ptosis. ENT: Ears normal, nares patent, oropharynx clear without exudates, moist mucous membranes. NECK: Trachea midline, full range of motion, supple. LUNGS: Breath sounds equal, clear to auscultation bilaterally, no wheezes, no crackles, no accessory muscle use. HEART: Regular rate and rhythm, S1, S2 without murmur, rub or gallop. ABDOMEN: Soft, nontender, nondistended, normoactive bowel sounds, no guarding, no rebound, no hepatosplenomegaly, no masses. EXTREMITIES: 2+ pulses, warm, well-perfused, no edema. LEFT LOWER EXTREMITY: dressing CDI, + 3 pedal pulse NEUROLOGICAL: Cranial nerves II through XII grossly intact. Normal speech, gait not observed. PSYCH: Normal mood, normal affect. SKIN: Warm, dry, normal turgor, no rashes or lesions noted Laboratory Results - last 24 hr 11/27/16 11/27/16 07:00 07:00 WBC 12.9 H D RBC 3.11 L D Hgb 8.9 L D Hct 26.8 L D MCV 86.1 MCHC 33.4 RDW 15.1 Plt Count 158 MPV 9.8 Neutrophils % 78.3 Lymphocytes % 11.2 Monocytes % 9.5 Eosinophils % 0.7 Basophils % 0.3 Sodium 138 Potassium 4.4 Chloride 108 H Carbon Dioxide 23 Anion Gap 7 L BUN 28 H Creatinine 1.1 Creat Clearance w eGFR 46.98 Random Glucose 111 H Calcium 8.4 Phosphorus 3.9 Magnesium 1.7 L Total Bilirubin 0.6 D AST 31 ALT 11 D Alkaline Phosphatase 53 D Total Protein 5.3 L Albumin 2.9 L Active Medications Generic Name Dose Route Start Last Admin Trade Name Freq PRN Reason Stop Dose Admin Acetaminophen 650 mg 11/26/16 20:00 11/27/16 08:04 Tylenol - PO 11/29/16 19:59 650 mg Q6H JORDYN Administration Allopurinol 100 mg 11/26/16 10:00 11/27/16 10:00 Zyloprim - PO 100 mg DAILY JORDYN Administration Aspirin 325 mg 11/27/16 08:00 11/27/16 08:05 Asa - PO 325 mg DAILY@0800 JORDYN Administration Atenolol 50 mg 11/25/16 22:00 11/27/16 09:58 Tenormin - PO 50 mg BID [facility] Administration Atorvastatin Calcium 10 mg 11/25/16 22:00 11/26/16 21:44 Lipitor - PO 10 mg HS [facility] Administration Fentanyl 25 mcg 11/26/16 12:36 Sublimaze Injection - IVPUSH 11/29/16 12:37 [id number] PRN PAIN Gabapentin 100 mg 11/25/16 22:00 11/26/16 21:45 Neurontin - PO 100 mg HS [facility] Administration Hydralazine HCl 50 mg 11/25/16 22:00 11/27/16 09:58 Apresoline - PO 50 mg BID [facility] Administration Losartan Potassium 50 mg 11/25/16 22:00 11/27/16 09:58 Cozaar - PO 50 mg BID [facility] Administration Multivitamins/Minerals/Vitamin C 1 tab 11/27/16 10:00 11/27/16 09:58 Tab-A-Vit - PO 1 tab DAILY [facility] Administration Ondansetron HCl 4 mg 11/25/16 14:20 Zofran Injection IVPB Q6H PRN NAUSEA Oxycodone HCl 5 mg 11/26/16 12:36 11/26/16 17:11 Roxicodone - PO 11/29/16 12:36 5 mg Q4H PRN Administration PAIN Oxycodone HCl 10 mg 11/26/16 12:36 11/27/16 06:21 Roxicodone - PO 11/29/16 12:36 10 mg Q4H PRN Administration PAIN Pantoprazole Sodium 40 mg 11/27/16 10:00 11/27/16 09:58 Protonix - PO 40 mg DAILY JORDYN Administration Paroxetine HCl 20 mg 11/26/16 10:00 11/27/16 09:59 Paxil - PO 20 mg DAILY JORDYN Administration Pramipexole Dihydrochloride 0.5 mg 11/26/16 10:00 11/27/16 09:58 Mirapex - PO 0.5 mg DAILY JORDYN Administration Senna/Docusate Sodium 1 tablet 11/26/16 22:00 11/27/16 09:58 Pericolace - PO 1 tablet BID JORDYN Administration Tramadol HCl 50 mg 11/25/16 22:00 11/27/16 06:21 Ultram - PO 12/02/16 21:59 50 mg TID JORDYN Administration Baby's Blood Type, Merari Blood Type A POSITIVE 11/25/16 18:28 Imaging Xray L-knee- left distal periprosthetic distal femur fracture ASSESSMENT/PLAN: 1) ortho left distal femur fracture--> s/p left distal femur replacement pod #1 - pt as per orthopedist regimen - prn pain medication - continue neurovascular checks 2) card Hypertension -Continue Cozaar and hydralazine -Blood pressure remains at goal hyperlipidemia - lFTs WNL continue Lipitor 3) psych anxiety - continue paxil f/e/n - low sodium diet - ivf ppx -protonix - ASA - PT as per ortho dispoi: requires inpatient care Visit type - Emergency Visit Emergency Visit: Yes ED Registration Date: 11/25/16 Care time: The patient presented to the Emergency Department on the above date and was hospitalized for further evaluation of their emergent condition. - New Patient This patient is new to me today: No - Critical Care Critical Care patient: No - Discharge Referral Referred to [facility] No
[2016-11-27] MEDS: ATORVASTATIN CA 10 MG TABLET (FP) PO SCH (22:24)
[2016-11-27] MEDS: GABAPENTIN 100 MG CAPSULE (FP) PO SCH (22:24)
[2016-11-28] MEDS: ACETAMINOPHEN 325 MG TABLET (FP) PO SCH (01:19)
[2016-11-28 06:15] VITALS: BP 128/47; PULSE 96; TEMP 99.5
[2016-11-28] MEDS: traMADol HCL 50 MG TABLET PO SCH (06:24)
[2016-11-28] MEDS: ASPIRIN 325 MG TABLET PO SCH (08:00)
--- NOTE | 2016-11-28 08:03 | PN ---
Progress Note (short form) - Note Progress Note: Ortho Pt seen and examined s/p left distal femur replacement pod #2 Selected Entries 11/28/16 06:00 Temperature 99.5 F Pulse Rate 96 H Respiratory 17 Rate Blood Pressure 128/47 Laboratory Tests 11/27/16 07:00 WBC 12.9 H D Hgb 8.9 L D Hct 26.8 L D Plt Count 158 dressing c/d/i, calf soft, nt rom 0-30, nvi a/p PT dvt ppx pain control d/c planning
[2016-11-28 10:03] LABS: BASOPHIL 0.6 % (0-2.0); EOSINOPHIL 4.1 % (0-4.5); MCH 28.9 pg (25.7-33.7); MCHC 33.3 g/dl (32.0-36.0); MEAN CELL VOLUME 86.9 fl (80-96); MEAN PLT VOLUME 10.2 fl (7.5-11.1); NEUTROPHILS 76.7 % (42.8-82.8); PLATELET COUNT 133 K/MM3 (134-434); WHITE BLOOD COUNT 12.5 K/mm3 (4.0-10.0)
[2016-11-28] MEDS: PRAMIPEXOLE DIHYDROCHLORIDE 0.25 MG TABLET PO SCH (10:11)
[2016-11-28] MEDS: LOSARTAN POTASSIUM 50 MG TABLET (FP) PO SCH (10:11)
[2016-11-28] MEDS: PARoxetine HCL 20 MG TABLET (FP) PO SCH (10:11)
[2016-11-28] MEDS: hydrALAZINE HCL 50 MG TABLET (FP) PO SCH (10:11)
[2016-11-28] MEDS: ALLOPURINOL 100 MG TABLET (FP) PO SCH (10:12)
[2016-11-28] MEDS: SENNOSIDES/DOCUSATE COMBO (SENNA PLUS) TABLET (UD) PO SCH (10:12)
[2016-11-28] MEDS: MULTIVITAMINS (DAILY MVI) TABLET (FP) PO SCH (10:12)
[2016-11-28] MEDS: PANTOPRAZOLE 40 MG TABLET (FP) PO SCH (10:12)
[2016-11-28] MEDS: ATENOLOL 50 MG TABLET (FP) PO SCH (10:12)
[2016-11-28 10:23] LABS: ALBUMIN 2.8 g/dl (3.5-5.0); ALK PHOS 55 U/L (32-92); ANION GAP 7 (8-16); BILIRUBIN,TOTAL 0.6 mg/dl (0.2-1.0); CALCIUM 8.3 mg/dl (8.4-10.2); CO2 21 mmol/L (22-28); CREATININE 1.3 mg/dl (0.6-1.3); GLUCOSE,RANDOM 86 mg/dl (74-106); MAGNESIUM 2.2 mg/dL (1.8-2.4); PHOSPHOROUS 3.8 mg/dl (2.5-4.6); SGOT/AST 39 U/L (10-42); TOT PROT 5.2 g/dl (6.4-8.3)
[2016-11-28 10:52] LABS: SGPT/ALT < 9 U/L (10-40)
[2016-11-28 11:11] LABS: BASOPHIL 0.4 % (0-2.0); MCH 28.4 pg (25.7-33.7); MCHC 32.9 g/dl (32.0-36.0); MEAN CELL VOLUME 86.6 fl (80-96); NEUTROPHILS 80.5 % (42.8-82.8); PLATELET COUNT 139 K/MM3 (134-434); RDW 15.1 % (11.6-15.6); WHITE BLOOD COUNT 13.4 K/mm3 (4.0-10.0)
--- NOTE | 2016-11-28 11:23 | DS ---
Physical Exam: SUBJECTIVE: Patient seen and examined OBJECTIVE: Vital Signs Period Temp Pulse Resp BP Sys/Barr Pulse Ox Last 24 Hr 97.6 F-99.5 F 81-96 17-20 116-131/44-48 91-93 PHYSICAL EXAM GENERAL: The patient is awake, alert, and fully oriented, in no acute distress. HEAD: Normal with no signs of trauma. EYES: PERRL, extraocular movements intact, sclera anicteric, conjunctiva clear. ENT: Ears normal, nares patent, oropharynx clear without exudates, moist mucous membranes. NECK: Trachea midline, full range of motion, supple. LUNGS: Breath sounds equal, clear to auscultation bilaterally, no wheezes, no crackles, no accessory muscle use. HEART: Regular rate and rhythm, S1, S2 without murmur, rub or gallop. ABDOMEN: Soft, nontender, nondistended, normoactive bowel sounds, no guarding, no rebound, no hepatosplenomegaly, no masses. EXTREMITIES: 2+ pulses, warm, well-perfused, no edema. NEUROLOGICAL: Cranial nerves II through XII grossly intact. Normal speech, gait not observed. PSYCH: Normal mood, normal affect. SKIN: Warm, dry, normal turgor, no rashes or lesions noted. LABS Laboratory Results - last 24 hr 11/28/16 11/28/16 11/28/16 08:00 08:00 10:55 WBC 12.5 H 13.4 H RBC 2.75 L 2.97 L Hgb 7.9 L D 8.4 L Hct 23.9 L 25.7 L MCV 86.9 86.6 MCHC 33.3 32.9 RDW 15.0 15.1 Plt Count 133 L 139 MPV 10.2 9.0 D Neutrophils % 76.7 80.5 Lymphocytes % 10.2 7.5 L D Monocytes % 8.4 7.6 Eosinophils % 4.1 D 4.0 Basophils % 0.6 0.4 Sodium 138 Potassium 4.1 Chloride 110 H Carbon Dioxide 21 L Anion Gap 7 L BUN 35 H D Creatinine 1.3 Creat Clearance w eGFR 38.75 Random Glucose 86 D Calcium 8.3 L Phosphorus 3.8 Magnesium 2.2 D Total Bilirubin 0.6 AST 39 D ALT < 9 L Alkaline Phosphatase 55 Total Protein 5.2 L Albumin 2.8 L HOSPITAL COURSE: Date of Admission:11/25/16 Date of Discharge: 11/28/16 Minutes to complete discharge: 45 Discharge Summary Reason For Visit: FRACTURE FEMUR Current Active Problems Anxiety (Acute) Arthritis (Acute) DVT prophylaxis (Acute) Fracture, femur, distal (Acute) HLD (hyperlipidemia) (Acute) HTN (hypertension) (Acute) - Instructions Referrals: Samson Marshall MD [Primary Care Provider] - - Home Medications Comprehensive Discharge Medication List: Ambulatory Orders RX: Atenolol [Tenormin -] 50 mg PO BID #0 tablet 07/26/13 RX: Atorvastatin Ca [Lipitor] 10 mg PO HS #0 tablet 09/13/13 RX: Paroxetine HCl [Paxil -] 20 mg PO DAILY #0 tablet 09/13/13 RX: Losartan Potassium 50 mg PO BID 04/21/16 Allopurinol [Zyloprim -] 100 mg PO DAILY 11/25/16 Aspirin [ASA -] 325 mg PO DAILY 11/25/16 Gabapentin [Neurontin -] 100 mg PO HS 11/25/16 Hydralazine HCl [Apresoline -] 50 mg PO BID 11/25/16 Comfrey Xl 2 cap PO DAILY 11/25/16 Pramipexole Di-HCl [Mirapex] 0.5 mg PO DAILY 11/25/16 Tramadol HCl [Ultram] 50 mg PO TID 11/25/16 Vits A,C,E/Lutein/Minerals [Ocuvite Tablet] 1 each PO DAILY 11/25/16 - Discharge Referral Referred to [facility] No
[2016-11-28] MEDS ORDERED: FERROUS SO4 325 MG TABLET (FP) PO SCH (11:30)
[2016-11-28 11:50] LABS: CALCIUM 8.3 mg/dl (8.4-10.2); CREATININE 1.2 mg/dl (0.6-1.3)
--- NOTE | 2016-11-28 14:12 | PN ---
Progress Note (short form) - Note Progress Note: Cath pulled this am. tip intact. no complications
--- NOTE | 2016-11-28 15:46 | PATH ---
Surgical Pathology Report Patient Name: AMA MURDOCK Med. Rec. #: [id number] /Age/Gender: 1930 (Age: 86) / F Account: [id number] [facility] Taken: 11/26/2016 Received: 11/26/2016 Reported: 11/28/2016 Physicians: Jaylen Carney M.D. Specimen(s) Received LEFT KNEE PROSTHESIS BONE TISSUE Clinical History Left femur fracture Final Diagnosis KNEE, LEFT, PROSTHESIS, BONE AND TISSUE, DISTAL FEMUR REPLACEMENT: HARDWARE, DESCRIBED (GROSS EXAMINATION ONLY). PORTIONS OF BONE AND FIBROCOLLAGENOUS TISSUE. Electronically Signed Connie Blakely M.D. Gross Description Received in formalin labeled "left knee prosthesis, bone and tissue," are 2 metallic portions of hardware measuring 6.5 and 7.0 cm in greatest dimension. The hardware displays attached bone and soft tissue. Also received within the same container is a 7.5 x 7.0 x 2.2 cm aggregate of multiple irregular, hemorrhagic portions of bone. Radial Saw Operator sections are submitted in one cassette, following decalcification. /11/27/2016 saudi11/27/2016
== END 2016-11-28 12:54 | DRG 467 ==
LOC: FER 12:07 → SUPCPDRO 12:07 → FM/S 17:08
PROVIDERS: ADMIT Internal Medicine; ATTEND Nurse Practitioner Family
PROC: 0SRU0J9 Replacement of Left Knee Joint, Femoral Surface with Synthetic Substitute, Cemented, Open Approach (ICD-10-PCS; 2016-11-26)
PROC: 0SPU0JZ Removal of Synthetic Substitute from Left Knee Joint, Femoral Surface, Open Approach (ICD-10-PCS; principal; 2016-11-26 11:08)
DX: S72.492A Other fracture of lower end of left femur, initial encounter for closed fracture (principal); M97.12XA Periprosthetic fracture around internal prosthetic left knee joint, initial encounter; I10 Essential (primary) hypertension; E78.5 Hyperlipidemia, unspecified; M13.88 Other specified arthritis, other site; W01.0XXA Fall on same level from slipping, tripping and stumbling without subsequent striking against object, initial encounter; Y93.89 Activity, other specified; Y92.098 Other place in other non-institutional residence as the place of occurrence of the external cause; F41.9 Anxiety disorder, unspecified; Z96.649 Presence of unspecified artificial hip joint; Z96.659 Presence of unspecified artificial knee joint
CPT/HCPCS: 36415; 71010-TC; 73560-TC-LT; 73562-TC-LT; 80048; 80053; 81003; 83735; 84100; 85025; 85027; 85610; 86850; 86900; 86901; 87086; 88304-TC; 93005; 94760; 97116-GP; 97162-PG; 99283-25

== ENCOUNTER 2017-04-29 11:23 | Emergency (ER) | payer OTHER ==
[2017-04-29 11:31] VITALS: BP 192/119; PULSE 84; TEMP 98.1; BMI 33.3
--- NOTE | 2017-04-29 12:30 | PDOC ---
History of Present Illness - General Chief Complaint: Respiratory Stated Complaint: SOB Time Seen by Provider: 04/29/17 12:15 History Source: Patient Exam Limitations: No Limitations - History of Present Illness Initial Comments: 04/29/17 12:42 86y F hx of htn, hl, presents with sob. Pt endorses feeling sob when she is laying down and sitting. Her sypmtoms are improved when she is standing. Pt does endorse mild swellingin her legs (chronically slightly swollen, but increased today). The pt denies any GROVES, chest pain at rest or at exertion, abd pain, back pain, dizziness, diaphoresis, cough, hemoptysis. The pt notes she felt fine yesterday, was out of her house all day and her symptoms woke he rup from sleep this morning. Pt also endorses eating a hot dog with saurkraut yesterday which is not her typical diet. She notes she had similar symptoms a few weeks ago but it resovled spontaneously. PMD: Joanna Past medical history: Knee replacement, hip replacement, arthritis with chronic pain, high blood pressure, elevated cholesterol, mood disorder Past History - Past Medical History Allergies/Adverse Reactions: Allergies Allergy/AdvReac Type Severity Reaction Status Date / Time No Known Allergies Allergy Verified 04/29/17 11:30 Home Medications: Ambulatory Orders Atenolol [Tenormin -] 50 mg PO BID #0 tablet 07/26/13 Atorvastatin Ca [Lipitor] 10 mg PO HS #0 tablet 09/13/13 Paroxetine HCl [Paxil -] 20 mg PO DAILY #0 tablet 09/13/13 Losartan Potassium 50 mg PO BID 04/21/16 Allopurinol [Zyloprim -] 100 mg PO DAILY 11/25/16 Aspirin [ASA -] 325 mg PO DAILY 11/25/16 Gabapentin [Neurontin -] 100 mg PO HS 11/25/16 Hydralazine HCl [Apresoline -] 50 mg PO BID 11/25/16 [place] Xl 2 cap PO DAILY 11/25/16 Pramipexole Di-HCl [Mirapex] 0.5 mg PO DAILY 11/25/16 Tramadol HCl [Ultram] 50 mg PO TID 11/25/16 Vits A,C,E/Lutein/Minerals [Ocuvite with Lutein Tablet] 1 each PO DAILY Acetaminophen [Tylenol .Regular Strength -] 650 mg PO Q6H tablet 11/28/16 Aspirin [ASA -] 325 mg PO DAILY@0800 #30 tablet 11/28/16 Ferrous Sulfate [Feosol] 325 mg PO BID #90 11/28/16 Multivitamins [Multivit ([facility] Formulary)] 1 tab PO DAILY tab 11/28/16 Oxycodone HCl [Roxicodone -] 5 mg PO Q4H PRN #0 tablet MDD 6 11/28/16 Sennosides/Docusate Sodium [Pericolace -] 1 tablet PO BID tablet 11/28/16 Anemia: Yes (arthritis) Asthma: No Cancer: No Cardiac Disorders: No CVA: No COPD: No CHF: No Dementia: No Diabetes: No GI Disorders: No Disorders: No HTN: Yes Hypercholesterolemia: Yes Liver Disease: No Psychiatric Problems: Yes (ANXIETY.) Seizures: No Thyroid Disease: No Other medical history: UMBILICAL HERNIA, ARTHRITIS - Surgical History Abdominal Surgery: No Appendectomy: No Cardiac Surgery: No Cholecystectomy: No Lung Surgery: No Neurologic Surgery: No Orthopedic Surgery: Yes - Immunization History Immunization Up to Date: Yes - Psycho/Social/Smoking Cessation Hx Anxiety: No Suicidal Ideation: No Smoking Status: No Smoking History: Never smoked Have you smoked in the past 12 months: No Number of Cigarettes Smoked Daily: 0 Hx Alcohol Use: Yes (SOCIAL) Drug/Substance Use Hx: No Substance Use Type: None Hx Substance Use Treatment: No Review of Systems - Review of Systems Able to Perform ROS?: Yes Comments:: 04/29/17 12:46 Constitutional - no reported Fever, Chills, HEENT: no reported vision changes, sore throat Respiratory: + sob, orthopnea no reported cough, hemoptysis Cardiac: + leg swelling no reported chest pain, palpitations, light headedness, Abd/GI: no reported abd pain, nausea, vomiting, blood per rectum, melena, diarrhea : no reported dysuria, frequency, discharge Musculskelatal - no reported back pain, joint swelling skin - no reported bruising, erythema, rash neurological: no reported headache, numbness, focal weakness, tingling, ataxia, hematologic: no reported anemia, easy bruising, easy bleeding *Physical Exam - Vital Signs Last Vital Signs Temp Pulse Resp BP Pulse Ox 98.1 F 84 20 192/119 95 04/29/17 11:24 04/29/17 11:24 04/29/17 11:24 04/29/17 11:24 04/29/17 11:24 - Physical Exam Comments: 04/29/17 12:47 GENERAL: The patient is awake, alert, and fully oriented, Nontoxic - in no acute distress. HEAD: Normocephalic, atraumatic. EYES: extraocular movements intact, sclera anicteric, conjunctiva clear. ENT: Normal voice, Moist mucous membranes. NECK: Normal range of motion, supple LUNGS: b/l rales at bases, speaking complete sentences HEART: Regular rate and rhythm, normal S1 and S2 without murmur, rub or gallop. ABDOMEN: Soft, nontender, periumbilical hernia, soft reducible, nontender to palpation, no erythema, EXTREMITIES: Normal range of motion, +1 pitting edemea b/l in LE (L>R chronic per patient), no calf tdnerness NEUROLOGICAL: No facial assymetry, Normal speech, PSYCH: Normal mood, normal affect. SKIN: Warm, Dry, normal turgor, Heart Score/ECG Review - ECG Impressions Comment:: 04/29/17 12:51 Twelve-lead EKG was performed and reviewed by me. There is normal sinus rhythm with a normal rate. rate of 77 The axis is normal. The intervals are normal. There are no ST or T wave abnormalities. Impression: Normal twelve-lead EKG ED Treatment Course - LABORATORY CBC & Chemistry Diagram: 04/29/17 13:00 04/29/17 14:24 Medical Decision Making - Medical Decision Making 04/29/17 12:50 86y F hx of htn, hl, presents with orthopnea/sob when sitting/reclined. no infectious symtoms. exam noted for mild LE edema and bibasilar rales no acute distress vitals normal suspect CHF, possibly from increasd salt intake yesterday will ck labs, cxr, ekg if Cr normal will give some lasix and reassess 04/29/17 14:35 pts labs noted for hyperkalemia although specimen was slightly hemolyized will ck repeat k and mag will give pt dose of lasix no signs of hyperkalemia on her ekg 04/29/17 15:55 repeat K is 4.3 will reasess pt after lasix if feeling improved possible dc with PMD fu 04/29/17 15:59 case dw yaraBakaricali marshall agree with plan will reasess pt if she feels well will d/c with 20mg lasix daily for af ew days with fu on thursday04/29/17 16:49 The patient feels improved states she actually has lasix at home will dc the pt with pmd fu return precautions were discussed pt ambulating around the ED without any sob will have pt watch her salt intake. I discussed the physical exam findings, ancillary test results and final diagnoses with the patient. I answered all of the patient's questions. The patient was satisfied with the care received and felt comfortable with the discharge plan and treatment plan. The patient will call their primary care physician within 24 hours to arrange follow-up and will return to the Emergency Department with any new, persistent or worsening symptoms. *DC/Admit/Observation/Transfer Diagnosis at time of Disposition: CHF (congestive heart failure) Qualifiers: Congestive heart failure type: unspecified congestive heart failure type Congestive heart failure chronicity: acute Qualified Code(s): I50.9 - Heart failure, unspecified - Discharge Dispostion Disposition: HOME Condition at time of disposition: Improved Admit: No - Referrals Referrals: Samson Marshall MD [Primary Care Provider] - - Patient Instructions Printed Discharge Instructions: DI for Heart Failure Additional Instructions: Return to the emergency department immediately with ANY new, persistent or worsening symptoms including any chest pain, shortness of breath, cough, fevers , chills or other concerns Take 20 mg of Lasix daily for next 2 days You MUST call and follow up with Dr. Marshall on Thursday for further evaluation of your symptoms. Results were discussed with you. Please make sure your doctor reviews the results of your emergency evaluation. Print Language: [place]
[2017-04-29 13:23] LABS: EOSINOPHIL 2.9 % (0-4.5); MCH 25.6 pg (25.7-33.7); MCHC 31.5 g/dl (32.0-36.0); MEAN CELL VOLUME 81.5 fl (80-96); MEAN PLT VOLUME 8.6 fl (7.5-11.1); NEUTROPHILS 66.6 % (42.8-82.8); PLATELET COUNT 197 K/MM3 (134-434); RDW 18.5 % (11.6-15.6); WHITE BLOOD COUNT 8.4 K/mm3 (4.0-10.0)
[2017-04-29 13:53] LABS: ANION GAP 6 (8-16); BILIRUBIN,TOTAL 0.5 mg/dL (0.2-1.0); CO2 22 mmol/L (21-32); CREATININE 0.9 mg/dL (0.55-1.02); GLUCOSE,RANDOM 100 mg/dL (74-106); SGPT/ALT 27 U/L (12-78); TOT PROT 8.2 g/dl (6.4-8.2)
[2017-04-29 13:55] LABS: ALK PHOS 95 U/L (45-117); TROPONIN I < 0.02 ng/ml (0.00-0.05)
[2017-04-29 13:58] LABS: CPK 224 IU/L (26-192); SGOT/AST 56 U/L (15-37)
[2017-04-29] MEDS ORDERED: FUROSEMIDE 40 MG/4 ML INJECTABLE VIAL IVPUSH ONE (14:01)
[2017-04-29] MEDS ORDERED: FUROSEMIDE 40 MG/4 ML INJECTABLE VIAL ONE (14:13)
--- NOTE | 2017-04-30 11:13 | EKG ---
Test Reason : Blood Pressure : / mmHG Vent. Rate : 077 BPM Atrial Rate : 077 BPM P-R Int : 176 ms QRS Dur : 086 ms QT Int : 366 ms P-R-T Axes : 060 033 045 degrees QTc Int : 414 ms NORMAL SINUS RHYTHM NORMAL ECG WHEN COMPARED WITH ECG OF 25-NOV-2016 14:23, NO SIGNIFICANT CHANGE WAS FOUND Confirmed by SUZI RAMON MD ([id number]) on 04/30/2017 11:12:43 AM Referred By: Confirmed By:SUZI RAMON MD
== END 2017-04-29 17:10 | disposition home or self-care (01) ==
LOC: JER 11:23
PROC: 3E033GC Introduction of Other Therapeutic Substance into Peripheral Vein, Percutaneous Approach (ICD-10-PCS; principal; 2017-04-29)
DX: I50.9 Heart failure, unspecified (principal)
CPT/HCPCS: 36415; 71020-TC; 80053; 82553; 83690; 83735; 83880; 84132; 84484; 85025; 85610; 93005; 93010; 96374; 99282-25

== ENCOUNTER 2018-07-10 11:50 | Inpatient (IN) | payer OTHER ==
--- NOTE | 2018-07-10 12:17 | PDOC ---
History of Present Illness - History of Present Illness Initial Comments: 07/10/18 12:19 The patient is an 87 year old female with a PMH of HTN, HLD, Anxiety, Femur fracture and CHF who was BIBEMS c/o weakness. Patient notes she has felt weak for the last 2-3 weeks however this morning she could not get out bed prompting her home health nurse to call 911. Patient denies any recent illness as well as associated numbness/tingling, shortness of breath. States she has been tolerating PO intake as usual. At baseline patient states she is ambulatory and completes her ADL's with minimal assistance however for the last few weeks she is more tired than usual while showering and preparing food. Patient lives alone and a home health nurse visits once a week. Denies any recent weight loss , memory loss, changes in dietary habits. 10 point ROS is negative including no abdominal pain, no diarrhea/constipation, no vomiting/nausea, no dysuria/hematuria. NKDA Surgical: Femur replacement Social: denies toxic habits PMD: Dr. Samson Marshall As per EMR, patient was last evaluated in our ED in 02/2018 for shortness of breath. BNP elevated. PEDRO showed no LV dysfunction, normal EF. Patient started on Lasix and discharged home. <Melody Terry - Last Filed: 07/10/18 20:36> - General History Source: Patient Exam Limitations: No Limitations <Sariah Goins - Last Filed: 07/11/18 09:54> - General Chief Complaint: Injury Stated Complaint: FALL Time Seen by Provider: 07/10/18 12:11 Past History - Past Medical History Anemia: Yes (arthritis) Asthma: No Cancer: No Cardiac Disorders: No CVA: No COPD: No CHF: No DVT: No Dementia: No Diabetes: No Dialysis: No GI Disorders: No Disorders: No HTN: Yes Hypercholesterolemia: Yes Kidney Stones: No Liver Disease: No Psychiatric Problems: Yes (ANXIETY.) Seizures: No Thyroid Disease: No Lung CA: No - Surgical History Abdominal Surgery: No Appendectomy: No Cardiac Surgery: No Cholecystectomy: No Gastric Stapling: No GI Surgery: No Lung Surgery: No Neurologic Surgery: No Orthopedic Surgery: Yes - Immunization History Td Vaccination: Yes TDAP Vaccination: Yes Immunization Up to Date: Yes - Suicide/Smoking/Psychosocial Hx Smoking Status: No Smoking History: Never smoked Have you smoked in the past 12 months: No Number of Cigarettes Smoked Daily: 0 Hx Alcohol Use: Yes (SOCIAL) Drug/Substance Use Hx: No Substance Use Type: None Hx Substance Use Treatment: No <MaraMelody - Last Filed: 07/10/18 20:36> <Sariah Goins - Last Filed: 07/11/18 09:54> - Past Medical History Allergies/Adverse Reactions: Allergies Allergy/AdvReac Type Severity Reaction Status Date / Time No Known Allergies Allergy Verified 02/12/18 23:28 Home Medications: Ambulatory Orders Atenolol [Tenormin -] 50 mg PO BID #0 tablet 07/26/13 Atorvastatin Ca [Lipitor] 10 mg PO HS #0 tablet 09/13/13 Paroxetine HCl [Paxil -] 20 mg PO DAILY #0 tablet 09/13/13 Allopurinol [Zyloprim -] 100 mg PO DAILY 11/25/16 Gabapentin [Neurontin -] 100 mg PO HS 11/25/16 [place] Xl 2 cap PO DAILY 11/25/16 Pramipexole Di-HCl [Mirapex] 0.5 mg PO DAILY 11/25/16 Tramadol HCl [Ultram] 50 mg PO TID 11/25/16 Vits A,C,E/Lutein/Minerals [Ocuvite with Lutein Tablet] 1 each PO DAILY hydrALAZINE HCL [Apresoline -] 50 mg PO BID 11/25/16 Acetaminophen [Tylenol .Regular Strength -] 650 mg PO Q6H tablet 11/28/16 Ferrous Sulfate [Feosol] 325 mg PO BID #90 11/28/16 Multivitamins [Multivit ([facility] Formul[facility])] 1 tab PO DAILY tab 11/28/16 Sennosides/Docusate Sodium [Pericolace -] 1 tablet PO BID tablet 11/28/16 oxyCODONE HCL [Roxicodone -] 5 mg PO Q4H PRN #0 tablet MDD 6 11/28/16 Aspirin Coated [Ecotrin -] 81 mg PO DAILY@0800 #0 tablet.ec 02/15/18 Furosemide [Lasix -] 20 mg PO Q2D #30 tablet 02/15/18 Valsartan [Diovan] 320 mg PO DAILY #60 tablet 02/15/18 Review of Systems - Review of Systems Constitutional: Yes: Weakness. No: Chills, Fever HEENTM: No: Blurred Vision, Double Vision Respiratory: No: Cough, Shortness of Breath, Wheezing, Hemoptysis Cardiac (ROS): No: Chest Pain, Lightheadedness, Palpitations, Syncope ABD/GI: No: Constipated, Diarrhea, Nausea, Vomiting : No: Burning, Dysuria <Melody Terry - Last Filed: 07/10/18 20:36> *Physical Exam - Physical Exam General Appearance: Yes: Disheveled, Thin HEENT: positive: Normal Voice, Hearing Grossly Normal. negative: Hearing Decreased, TM Bulging, TM Dull Neck: positive: Trachea midline, Supple Respiratory/Chest: positive: Lungs Clear, Normal Breath Sounds Cardiovascular: positive: S1, S2. negative: Edema, JVD Vascular Pulses: Dorsalis-Pedis (R): 2+, Doralis-Pedis (L): 2+ Gastrointestinal/Abdominal: positive: Normal Bowel Sounds, Soft, Other ( reducible umbilical hernia) Musculoskeletal: negative: CVA Tenderness (R), CVA Tenderness (L) Extremity: positive: Normal Capillary Refill, Normal Inspection, Pedal Edema (1 + LLE ) Integumentary: positive: Normal Color, Dry, Warm, Other (no ulcers visualized including heels, sacral decub) Neurologic: positive: Fully Oriented, Alert <MaraMelody - Last Filed: 07/10/18 20:36> - Vital Signs Last Vital Signs Temp Pulse Resp BP Pulse Ox 97.8 F 113 H 18 149/72 98 07/10/18 18:00 07/10/18 18:00 07/10/18 18:00 07/10/18 18:00 07/10/18 18:07 <Sariah Goins - Last Filed: 07/11/18 09:54> Heart Score/ECG Review - ECG Impressions Comment:: 07/10/18 20:10 Sinus tachycardia @ 118, normal intervals, no deviations, no VICENTE/STD/TWI. Non- ischemic ECG. <Melody Terry - Last Filed: 07/10/18 20:36> ED Treatment Course - LABORATORY CBC & Chemistry Diagram: 07/10/18 13:00 07/10/18 13:00 <Melody Terry - Last Filed: 07/10/18 20:36> - LABORATORY CBC & Chemistry Diagram: 07/11/18 06:40 07/11/18 06:40 - ADDITIONAL ORDERS Additional order review: 07/10/18 12:50 Urine Culture - Preliminary Urine - Urine Clean Catch Lactose Fermenting Neg Bacilli 07/10/18 13:00 RBC 4.34 MCV 88.3 MCHC 34.1 RDW 15.7 H MPV 8.9 Neutrophils % 80.5 D Lymphocytes % 8.5 D Monocytes % 8.5 Eosinophils % 1.0 Basophils % 1.5 - Medications Given in the ED: ED Medications Discontinued Medications Generic Name Dose Route Start Last Admin Trade Name Freq PRN Reason Stop Dose Admin Ceftriaxone Sodium 1,000 mg 07/10/18 13:34 07/10/18 14:28 Rocephin - IVPUSH 07/10/18 13:35 1,000 mg ONCE ONE Administration Sodium Chloride 1,000 ml 07/10/18 13:53 07/10/18 14:28 Normal Saline - IV 07/10/18 13:54 1,000 ml ONCE ONE Administration Sodium Polystyrene Sulfonate 20 gm 07/10/18 14:46 07/10/18 15:28 Kayexalate - PO 07/10/18 14:47 20 gm ONCE ONE Administration <Sariah Goins - Last Filed: 07/11/18 09:54> Medical Decision Making - Medical Decision Making 07/10/18 13:26 87 year old female presents to our ED c/o weakness. Disheveled, smells of urine. VS unremarkable. DDx includes: metabolic derangement (possibly 2/2 to poor nutritional intake, tea & toast diet), infection (including UTI) less likely emergency medical condition including r/o ACS, CVA. Will obtain basic labs, hydrate, UA/Urine culture. Reassess. ECG non-ischemic as documented in EMR. 07/10/18 13:32 UA grossly positive with 7 WBC and (+) LE, (+) nitirites Rocephin 07/10/18 13:33 WBC 14.7 As patient tachycardic (118) will initiate ED adult sepsis protocol Patient's family @ bedside, notes patient likely requires additional assistance to complete ADL's. Patient admitted to Dr. Braeden Johnson for further evaluation, likely rehabilitation placement. <Melody Terry - Last Filed: 07/10/18 20:36> *DC/Admit/Observation/Transfer - Discharge Dispostion Decision to Admit order: Yes <Melody Terry - Last Filed: 07/10/18 20:36> - Discharge Dispostion Decision to Admit order: Yes Decision to Admit order Date/Time: 07/11/18 09:54 <Sariah Goins - Last Filed: 07/11/18 09:54> Diagnosis at time of Disposition: Urinary tract infection - Discharge Dispostion Condition at time of disposition: Fair
[2018-07-10 13:01] LABS: URINE APPEARANCE CLEAR; URINE BILIRUBIN NEGATIVE (<2.0 mg/dL); URINE COLOR YELLOW; URINE GLUCOSE (UA) NEGATIVE (NEGATIVE); URINE KETONE TRACE (NEGATIVE); URINE LEUK ESTERASE TRACE (NEGATIVE); URINE NITRITE POSITIVE (NEGATIVE); URINE PROTEIN NEGATIVE (NEGATIVE); URINE UROBILINOGEN NEGATIVE mg/dL (0.2-1.0)
[2018-07-10 13:07] LABS: BASO % 1.5 % (0-2.0); HEMATOCRIT 38.4 % (32.4-45.2); HEMOGLOBIN 13.1 GM/dL (10.7-15.3); LYMPH % 8.5 % (8-40); MCH 30.1 pg (25.7-33.7); MCHC 34.1 g/dl (32.0-36.0); MEAN CELL VOLUME 88.3 fl (80-96); MEAN PLT VOLUME 8.9 fl (7.5-11.1); MONO % 8.5 % (3.8-10.2); NEUT % 80.5 % (42.8-82.8); PLATELET COUNT 241 K/MM3 (134-434); RBC 4.34 M/mm3 (3.60-5.2); RDW 15.7 % (11.6-15.6); WHITE BLOOD COUNT 14.7 K/mm3 (4.0-10.0)
[2018-07-10 13:15] LABS: URINE BACTERIA MANY /hpf (NONE SEEN)
[2018-07-10] MEDS ORDERED: SODIUM CHLORIDE 0.9% 500 ML INFUS.BAG IV ONE (13:53)
[2018-07-10 13:55] LABS: ALK PHOS 97 U/L (45-117); ANION GAP 10 MMOL/L (8-16); BILIRUBIN,TOTAL 1.1 mg/dL (0.2-1); BLOOD UREA NITROGEN 42 mg/dL (7-18); CALCIUM 9.6 mg/dL (8.5-10.1); CHLORIDE 109 mmol/L (98-107); CO2 19 mmol/L (21-32); CREATININE 1.5 mg/dL (0.55-1.3); GLUCOSE,RANDOM 96 mg/dL (74-106); MAGNESIUM 2.1 mg/dL (1.8-2.4); POTASSIUM 5.9 mmol/L (3.5-5.1); SGOT/AST 133 U/L (15-37); SGPT/ALT 44 U/L (13-61); SODIUM 139 mmol/L (136-145); TOT PROT 7.8 g/dl (6.4-8.2)
[2018-07-10] MEDS ORDERED: CEFTRIAXONE 1 GM/50 ML BAG ONE (14:17)
[2018-07-10] MEDS ORDERED: oxyCODONE HCL 5 MG TABLET PO PRN (14:19)
--- NOTE | 2018-07-10 14:32 | HP ---
Admitting History and Physical - Primary Care Physician PCP: Samson Marshall - Admission Chief Complaint: Unable to get out of the feeling weak History of Present Illness: 87 yrs old F multiple medical Co-morbidities known since previous Hospitalization H/O HTn, Dyslipedemia, anxiety , sHF EF 44%, CKD stage 3 base line Creat 1.2 o lives at home independent, presnt with c/o feeling weak couldnt get out of the bed otherwise denies any fever, chills, chest pain, palpitation, GROVES, PND or orthopnea, in the Ed hemodynamically stable lab shows elevated YWBC + UA, elevated BUN Creat and mild hyperkalemia, admitted for UTI and further management.. History Source: Patient - Past Medical History Cardiovascular: Yes: HTN, Hyperlipdemia Gastrointestinal: Yes: Gastritis, GERD Psych: Yes: Anxiety Musculoskeletal: Yes: Chronic low back pain Endocrine: Yes: Coffee's Disease - Past Surgical History Past Surgical History: Yes: Joint Replacement (Let Knee shoulder and Hip) - Smoking History Smoking history: Never smoked Have you smoked in the past 12 months: No Aproximately how many cigarettes per day: 0 - Alcohol/Substance Use Hx Alcohol Use: No (SOCIAL) - Social History Usual Living Arrangement: Yes: Alone History of Recent Travel: No Home Medications - Allergies Allergies/Adverse Reactions: Allergies Allergy/AdvReac Type Severity Reaction Status Date / Time No Known Allergies Allergy Verified 02/12/18 23:28 - Home Medications Home Medications: Ambulatory Orders Atenolol [Tenormin -] 50 mg PO BID #0 tablet 07/26/13 Atorvastatin Ca [Lipitor] 10 mg PO HS #0 tablet 09/13/13 Paroxetine HCl [Paxil -] 20 mg PO DAILY #0 tablet 09/13/13 Allopurinol [Zyloprim -] 100 mg PO DAILY 11/25/16 Gabapentin [Neurontin -] 100 mg PO HS 11/25/16 [place] Xl 2 cap PO DAILY 11/25/16 Pramipexole Di-HCl [Mirapex] 0.5 mg PO DAILY 11/25/16 Tramadol HCl [Ultram] 50 mg PO TID 11/25/16 Vits A,C,E/Lutein/Minerals [Ocuvite with Lutein Tablet] 1 each PO DAILY hydrALAZINE HCL [Apresoline -] 50 mg PO BID 11/25/16 Acetaminophen [Tylenol .Regular Strength -] 650 mg PO Q6H tablet 11/28/16 Ferrous Sulfate [Feosol] 325 mg PO BID #90 11/28/16 Multivitamins [Multivit ([facility] Formulary)] 1 tab PO DAILY tab 11/28/16 Sennosides/Docusate Sodium [Pericolace -] 1 tablet PO BID tablet 11/28/16 oxyCODONE HCL [Roxicodone -] 5 mg PO Q4H PRN #0 tablet MDD 6 11/28/16 Aspirin Coated [Ecotrin -] 81 mg PO DAILY@0800 #0 tablet.ec 02/15/18 Furosemide [Lasix -] 20 mg PO Q2D #30 tablet 02/15/18 Valsartan [Diovan] 320 mg PO DAILY #60 tablet 02/15/18 Family Disease History - Family Disease History Family History: Unremarkable Review of Systems - Review of Systems Constitutional: denies: Chills, Diaphoresis, Fever Eyes: denies: Blind Spots, Blurred Vision, Double Vision HENT: denies: Difficult Swallowing, Ear Discharge Neck: denies: Decreased ROM, Lumps, Pain on Movement Cardiovascular: denies: Chest Pain, Edema, Palpitations Respiratory: denies: Cough, Exercise Intolerance, Hemoptysis Gastrointestinal: denies: Abdominal Pain, Bloating, Constipation Genitourinary: denies: Burning, Discharge, Dysuria Musculoskeletal: reports: Back Pain, Joint Swelling Endocrine: denies: Excessive Sweating, Flushing Physical Examination Vital Signs: Vital Signs Temperature 99.1 F 07/10/18 12:05 Pulse Rate 118 H 07/10/18 12:05 Respiratory Rate 14 07/10/18 12:05 Blood Pressure 169/75 07/10/18 12:05 O2 Sat by Pulse Oximetry (%) 96 07/10/18 12:05 Constitutional: Yes: Calm HENT: Yes: Normocephalic, Other (MM dry , mild anemia) Neck: Yes: Supple, Trachea Midline. No: Decreased ROM, Lymphadenopathy Cardiovascular: Yes: Regular Rate and Rhythm, Bradycardia, Tachycardia, S1, S2. No: Bruit, JVD, Gallop, Murmur Respiratory: Yes: Regular, CTA Bilaterally Gastrointestinal: Yes: Normal Bowel Sounds, Soft Extremities: No: Calf Tenderness Edema: RUE: Trace, LLE: 1+ Peripheral Pulses: Left Doralis Pedis: 1+, Right Dorsalis Pedis: 1+ Neurological: Yes: Alert, Oriented ...Motor Strength: WNL, LUE, LLE, RUE, RLE Labs: CBC, BMP 07/10/18 13:00 07/10/18 13:00 CBC,CMP WBC 14.7 K/mm3 (4.0-10.0) H 07/10/18 13:00 RBC 4.34 M/mm3 (3.60-5.2) 07/10/18 13:00 Hgb 13.1 GM/dL (10.7-15.3) 07/10/18 13:00 Hct 38.4 % (32.4-45.2) 07/10/18 13:00 MCV 88.3 fl (80-96) 07/10/18 13:00 MCH 30.1 pg (25.7-33.7) 07/10/18 13:00 MCHC 34.1 g/dl (32.0-36.0) 07/10/18 13:00 RDW 15.7 % (11.6-15.6) H 07/10/18 13:00 Plt Count 241 K/MM3 (134-434) 07/10/18 13:00 MPV 8.9 fl (7.5-11.1) 07/10/18 13:00 Absolute Neuts (auto) 11.8 K/mm3 (1.5-8.0) H 07/10/18 13:00 Neutrophils % 80.5 % (42.8-82.8) D 07/10/18 13:00 Lymphocytes % 8.5 % (8-40) D 07/10/18 13:00 Monocytes % 8.5 % (3.8-10.2) 07/10/18 13:00 Eosinophils % 1.0 % (0-4.5) 07/10/18 13:00 Basophils % 1.5 % (0-2.0) 07/10/18 13:00 Nucleated RBC % 0 % (0-0) 07/10/18 13:00 Sodium 139 mmol/L (136-145) 07/10/18 13:00 Potassium 5.9 mmol/L (3.5-5.1) H 07/10/18 13:00 Chloride 109 mmol/L (98-107) H 07/10/18 13:00 Carbon Dioxide 19 mmol/L (21-32) L 07/10/18 13:00 Anion Gap 10 MMOL/L (8-16) 07/10/18 13:00 BUN 42 mg/dL (7-18) H 07/10/18 13:00 Creatinine 1.5 mg/dL (0.55-1.3) H 07/10/18 13:00 Creat Clearance w eGFR 32.77 (>60) 07/10/18 13:00 Random Glucose 96 mg/dL (74-106) 07/10/18 13:00 Calcium 9.6 mg/dL (8.5-10.1) 07/10/18 13:00 Magnesium 2.1 mg/dL (1.8-2.4) 07/10/18 13:00 Total Bilirubin 1.1 mg/dL (0.2-1) H 07/10/18 13:00 AST 133 U/L (15-37) H 07/10/18 13:00 ALT 44 U/L (13-61) 07/10/18 13:00 Alkaline Phosphatase 97 U/L (45-117) 07/10/18 13:00 Total Protein 7.8 g/dl (6.4-8.2) 07/10/18 13:00 Albumin 4.0 g/dl (3.4-5.0) 07/10/18 13:00 Imaging - Results X-ray: Report Reviewed (No interval changes) EKG: Report Reviewed (HR [address] T changes tall t wave) Problem List - Problems (1) Weakness Assessment/Plan: Generalised weakness gradually incresing since Thursday no recent fall Dehydrated and UTI will re evalute after hydration, PT consult, fall precautions Code(s): R53.1 - WEAKNESS (2) Acute kidney injury superimposed on CKD Assessment/Plan: Due to dehydration base line Creat 1.2 CKD stage 3, hold valsartan and Lasix Code(s): N17.9 - ACUTE KIDNEY FAILURE, UNSPECIFIED; N18.9 - CHRONIC KIDNEY DISEASE, UNSPECIFIED (3) Dehydration Assessment/Plan: Iv Hydration F/U BMP Code(s): E86.0 - DEHYDRATION (4) Hyperkalemia Assessment/Plan: K 5.9 mild IV Hydration F/U BMP in PM Kayxelate 20 gm once, hold valsartan Code(s): E87.5 - HYPERKALEMIA (5) Anxiety Assessment/Plan: Cont Home meds Code(s): F41.9 - ANXIETY DISORDER, UNSPECIFIED (6) CHF (congestive heart failure) Assessment/Plan: low EF compensated Hold Lasix and Valsartan for DARYL F/U clinically Code(s): I50.9 - HEART FAILURE, UNSPECIFIED (7) Gout Assessment/Plan: On allopurinol Code(s): M10.9 - GOUT, UNSPECIFIED (8) HLD (hyperlipidemia) Assessment/Plan: cont statin Code(s): E78.5 - HYPERLIPIDEMIA, UNSPECIFIED (9) HTN (hypertension) Assessment/Plan: Hold valsartan rest cont same Code(s): I10 - ESSENTIAL (PRIMARY) HYPERTENSION (10) Arthritis Code(s): M19.90 - UNSPECIFIED OSTEOARTHRITIS, UNSPECIFIED SITE (11) UTI (urinary tract infection) Assessment/Plan: IV Ceftriaxone F/U cultures Code(s): N39.0 - URINARY TRACT INFECTION, SITE NOT SPECIFIED
--- NOTE | 2018-07-10 14:32 | PDOC ---
Attending Attestation - Resident Resident Name: Melody Terry - ED Attending Attestation I have performed the following: I have examined & evaluated the patient, The case was reviewed & discussed with the resident, I agree w/resident's findings & plan - HPI HPI: 07/10/18 14:33 The patient is an 87 year old female with a significant past medical history of hypertension, hyperlipidemia, anxiety, arthritis, and anemia who presents to the emergency department with generalized weakness since earlier this morning. The patient reports that she was at home in bed this morning when she experienced some difficulty getting out of bed secondary to her generalized weakness. The patient reports that her house keeper subsequently had to help her to get out of bed and to the restroom. The patient denies having any usual trouble getting around. She denies any recent fall or injury. She denies any other symptoms . she denies any fever, chills, nausea, vomiting, diarrhea, constipation or urinary symptoms. She denies any chest pain, shortness of breath , headache or dizziness. The patient denies any other complaints. PCP: Dr. Marshall - Physicial Exam PE: 07/10/18 14:30 NAD, well appearing, PERRL, EOMI, MMM, nl conjunctiva, anicteric; neck supple. lungs clear, tachycardic, abdomen with umbilical hernia, reducible, no skin changes, nontender.. HUNTER x4, no focal neuro deficits. No peripheral edema. normal color for ethnicity, WWP. old healing bruises on right upper back and UE. - Medical Decision Making 07/10/18 14:30 I, Sariah Goins MD, attest that this document has been prepared under my direction and personally reviewed by me in its entirety. I further attest, that it accurately reflects all work, treatment, procedures and medical decision -making performed by me. 87 year old female with a significant past medical history of hypertension, hyperlipidemia, anxiety, arthritis, and anemia who presents to the emergency department with generalized weakness since earlier this morning Vital signs reviewed, +tachycardia, temperature normal Prior notes reviewed, including admissions, discharges and consultations. laboratory results and imaging reviewed, basic labs and lytes wnl, notable for + leukocytosis of 14K. Cr at baseline, unchanged. UA_grossly positive with WBCs and leuk esterase. +nitrites. f/u urine cx. EKG sinus tachycardia, no interval abnormalities, narrow QRS, ST and T wave segments and morphology normal. ED course: no acute events, remained stable and well appearing. no head injury or impact, no ct imaging indicated. Clinically improved after interventions, including IVF and ceftriaxone for UTI. Dispo: Admit for weakness, acute UTI, PT eval for inability to ambulate from weakness, fall risk. Discussed results and management plan with pt and family member at bedside, agree with impression and plan admit Dr. Deras 07/11/18 09:47
[2018-07-10] MEDS ORDERED: SODIUM POLYSTYRENE SULFONATE 15 GM/60 ML BOTTLE PO ONE (14:46)
[2018-07-10] MEDS: SODIUM CHLORIDE 1,000 ML IV SCH (15:28)
[2018-07-10] MEDS ORDERED: SODIUM POLYSTYRENE SULFONATE 15 GM/60 ML BOTTLE ONE (15:32)
[2018-07-10 16:39] VITALS: BMI 29.2
[2018-07-10] MEDS: ACETAMINOPHEN 325 MG TABLET (FP) PO SCH ×2 (17:24→23:46)
[2018-07-10 20:50] LABS: ANION GAP 12 MMOL/L (8-16); BLOOD UREA NITROGEN 43 mg/dL (7-18); CALCIUM 8.6 mg/dL (8.5-10.1); CHLORIDE 112 mmol/L (98-107); CO2 21 mmol/L (21-32); CREATININE 1.4 mg/dL (0.55-1.3); GLUCOSE,RANDOM 115 mg/dL (74-106); POTASSIUM 4.4 mmol/L (3.5-5.1); SODIUM 145 mmol/L (136-145)
[2018-07-10] MEDS: FERROUS SO4 325 MG TABLET (FP) PO SCH (22:03)
[2018-07-10] MEDS: ATENOLOL 50 MG TABLET (FP) PO SCH (22:04)
[2018-07-10] MEDS: SENNOSIDES/DOCUSATE COMBO (SENNA PLUS) TABLET (UD) PO SCH (22:04)
[2018-07-10] MEDS: traMADol HCL 50 MG TABLET PO SCH (22:04)
[2018-07-10] MEDS: GABAPENTIN 100 MG CAPSULE (FP) PO SCH (22:04)
[2018-07-10] MEDS: hydrALAZINE HCL 50 MG TABLET (FP) PO SCH (22:04)
[2018-07-10] MEDS: ATORVASTATIN CA 10 MG TABLET (FP) PO SCH (22:04)
[2018-07-11] MEDS: traMADol HCL 50 MG TABLET PO SCH ×2 (05:50→22:18)
[2018-07-11] MEDS: ACETAMINOPHEN 325 MG TABLET (FP) PO SCH ×2 (05:51→12:00)
[2018-07-11 07:58] LABS: BASO % 0.9 % (0-2.0); EOS % 5.9 % (0-4.5); HEMATOCRIT 34.7 % (32.4-45.2); HEMOGLOBIN 11.6 GM/dL (10.7-15.3); LYMPH % 11.9 % (8-40); MCH 29.8 pg (25.7-33.7); MCHC 33.5 g/dl (32.0-36.0); MEAN PLT VOLUME 8.9 fl (7.5-11.1); MONO % 8.6 % (3.8-10.2); NEUT % 72.7 % (42.8-82.8); PLATELET COUNT 229 K/MM3 (134-434); RDW 15.9 % (11.6-15.6); WHITE BLOOD COUNT 11.1 K/mm3 (4.0-10.0)
--- NOTE | 2018-07-11 08:14 | PN ---
Progress Note, Physician - Current Medication List Current Medications: Active Medications Acetaminophen (Tylenol -) 650 mg PO Q6HPO [facility] Last Admin: 07/11/18 05:51 Dose: Not Given Allopurinol (Zyloprim -) 100 mg PO DAILY [facility] Aspirin (Ecotrin -) 81 mg PO DAILY@0800 [facility] Atenolol (Tenormin -) 50 mg PO BID [facility] Last Admin: 07/10/18 22:04 Dose: 50 mg Atorvastatin Calcium (Lipitor -) 10 mg PO HS [facility] Last Admin: 07/10/18 22:04 Dose: 10 mg Ferrous Sulfate (Feosol -) 325 mg PO BID [facility] Last Admin: 07/10/18 22:03 Dose: 325 mg Gabapentin (Neurontin -) 100 mg PO HS [facility] Last Admin: 07/10/18 22:04 Dose: 100 mg Hydralazine HCl (Apresoline -) 50 mg PO BID [facility] Last Admin: 07/10/18 22:04 Dose: 50 mg Ceftriaxone Sodium 1 gm/ (Dextrose) 50 mls @ 100 mls/hr IVPB DAILY [facility] Sodium Chloride (Normal Saline -) 1,000 mls @ 50 mls/hr IV ASDIR [facility] Last Admin: 07/10/18 15:28 Dose: 50 mls/hr Multivitamins/Minerals/Vitamin C (Tab-A-Vit -) 1 tab PO DAILY [facility] Oxycodone HCl (Roxicodone -) 5 mg PO Q4H PRN PRN Reason: PAIN Paroxetine HCl (Paxil -) 20 mg PO DAILY [facility] Pramipexole Dihydrochloride (Mirapex -) 0.5 mg PO DAILY [facility] Senna/Docusate Sodium (Pericolace -) 1 tablet PO BID [facility] Last Admin: 07/10/18 22:04 Dose: 1 tablet Tramadol HCl (Ultram -) 50 mg PO TID [facility] Last Admin: 07/11/18 05:50 Dose: 50 mg - Objective Vital Signs: Vital Signs Temperature 97.8 F 07/10/18 18:00 Pulse Rate 113 H 07/10/18 18:00 Respiratory Rate 18 07/10/18 18:00 Blood Pressure 149/72 07/10/18 18:00 O2 Sat by Pulse Oximetry (%) 98 07/10/18 18:07 Constitutional: comfortable, Calm HENT: Normocephalic, Other (MM dry , mild anemia) Neck: Supple, Trachea Midline. No: Decreased ROM, Lymphadenopathy Cardiovascular: Regular Rate and Rhythm, Bradycardia, Tachycardia, S1, S2. No : Bruit, JVD, Gallop, Murmur Respiratory: Regular, CTA Bilaterally Gastrointestinal: Normal Bowel Sounds, Soft Extremities: No: Calf Tenderness, Edema: RUE: Trace, LLE: 1+Peripheral Pulses: Left Doralis Pedis: 1+, Right Dorsalis Pedis: 1+ Neurological: Alert, Oriented, Motor Strength: WNL, LUE, LLE, RUE, RLE Labs: CBC, BMP 07/11/18 06:40 Problem List - Problems (1) Weakness Assessment/Plan: Generalised weakness gradually incresing since Thursday no recent fall Dehydrated and UTI will re evalute after hydration, PT consult, fall precautions Code(s): R53.1 - WEAKNESS (2) Acute kidney injury superimposed on CKD Assessment/Plan: Due to dehydration base line Creat 1.2 CKD stage 3, hold valsartan and Lasix Code(s): N17.9 - ACUTE KIDNEY FAILURE, UNSPECIFIED; N18.9 - CHRONIC KIDNEY DISEASE, UNSPECIFIED (3) Dehydration Assessment/Plan: Iv Hydration F/U BMP Code(s): E86.0 - DEHYDRATION (4) Hyperkalemia Assessment/Plan: Improved Code(s): E87.5 - HYPERKALEMIA (5) Anxiety Assessment/Plan: Cont Home meds Code(s): F41.9 - ANXIETY DISORDER, UNSPECIFIED (6) CHF (congestive heart failure) Assessment/Plan: low EF compensated Hold Lasix and Valsartan for DARYL F/U clinically Code(s): I50.9 - HEART FAILURE, UNSPECIFIED (7) Gout Assessment/Plan: On allopurinol Code(s): M10.9 - GOUT, UNSPECIFIED (8) HLD (hyperlipidemia) Assessment/Plan: cont statin Code(s): E78.5 - HYPERLIPIDEMIA, UNSPECIFIED (9) HTN (hypertension) Assessment/Plan: Hold valsartan rest cont same Code(s): I10 - ESSENTIAL (PRIMARY) HYPERTENSION (10) Arthritis Code(s): M19.90 - UNSPECIFIED OSTEOARTHRITIS, UNSPECIFIED SITE (11) UTI (urinary tract infection) Assessment/Plan: IV Ceftriaxone F/U cultures Code(s): N39.0 - URINARY TRACT INFECTION, SITE NOT SPECIFIED
[2018-07-11 08:32] LABS: ALBUMIN 3.2 g/dl (3.4-5.0); ALK PHOS 77 U/L (45-117); ANION GAP 8 MMOL/L (8-16); BILIRUBIN,TOTAL 0.6 mg/dL (0.2-1); BLOOD UREA NITROGEN 42 mg/dL (7-18); CALCIUM 8.3 mg/dL (8.5-10.1); CHLORIDE 114 mmol/L (98-107); CO2 22 mmol/L (21-32); CREATININE 1.4 mg/dL (0.55-1.3); GLUCOSE,RANDOM 95 mg/dL (74-106); POTASSIUM 4.2 mmol/L (3.5-5.1); SGOT/AST 83 U/L (15-37); SGPT/ALT 33 U/L (13-61); SODIUM 144 mmol/L (136-145); TOT PROT 6.4 g/dl (6.4-8.2)
[2018-07-11] MEDS ORDERED: DEXTROSE 5%-WATER - 50 ML IVPB ONE (09:31)
[2018-07-11] MEDS ORDERED: cefTRIAXone SODIUM 1 GM VIAL ONE (09:31)
[2018-07-11] MEDS ORDERED: PT OWN MED DRAWER 7, Y5N ONE (09:38)
[2018-07-11] MEDS: SENNOSIDES/DOCUSATE COMBO (SENNA PLUS) TABLET (UD) PO SCH ×2 (11:03→22:17)
[2018-07-11] MEDS: ATENOLOL 50 MG TABLET (FP) PO SCH ×2 (11:03→22:17)
[2018-07-11] MEDS: MULTIVITAMINS (DAILY MVI) TABLET (FP) PO SCH (11:03)
[2018-07-11] MEDS: ALLOPURINOL 100 MG TABLET (FP) PO SCH (11:03)
[2018-07-11] MEDS: hydrALAZINE HCL 50 MG TABLET (FP) PO SCH ×2 (11:03→22:18)
[2018-07-11] MEDS: FERROUS SO4 325 MG TABLET (FP) PO SCH ×2 (11:03→22:18)
[2018-07-11] MEDS: PARoxetine HCL 20 MG TABLET (FP) PO SCH (11:03)
[2018-07-11] MEDS: CEFTRIAXONE 1 GM in DEXTROSE 5%-WATER - 50 ML IVPB SCH (11:04)
[2018-07-11] MEDS: PRAMIPEXOLE DIHYDROCHLORIDE 0.5 MG TABLET PO SCH (11:04)
[2018-07-11] MEDS: ASPIRIN COATED 81 MG TABLET.EC PO SCH (11:04)
--- NOTE | 2018-07-11 11:46 | EKG ---
Test Reason : Blood Pressure : / mmHG Vent. Rate : 113 BPM Atrial Rate : 113 BPM P-R Int : 156 ms QRS Dur : 076 ms QT Int : 320 ms P-R-T Axes : 077 057 053 degrees QTc Int : 438 ms SINUS TACHYCARDIA OTHERWISE NORMAL ECG WHEN COMPARED WITH ECG OF 14-FEB-2018 09:35, VENT. RATE HAS INCREASED BY 42 BPM Confirmed by ELEUTERIO MEYER MD ([id number]) on 07/11/2018 11:45:52 AM Referred By: Confirmed By:ELEUTERIO MEYER MD
[2018-07-11] MEDS: ATORVASTATIN CA 10 MG TABLET (FP) PO SCH (22:17)
[2018-07-11] MEDS: GABAPENTIN 100 MG CAPSULE (FP) PO SCH (22:17)
[2018-07-12] MEDS: SODIUM CHLORIDE 1,000 ML IV SCH (07:03)
[2018-07-12] MEDS: ACETAMINOPHEN 325 MG TABLET (FP) PO SCH ×2 (07:04→15:30)
[2018-07-12] MEDS: traMADol HCL 50 MG TABLET PO SCH ×4 (07:06→21:52)
[2018-07-12 07:55] LABS: BASO % 0.8 % (0-2.0); EOS % 4.7 % (0-4.5); HEMATOCRIT 32.9 % (32.4-45.2); HEMOGLOBIN 11.4 GM/dL (10.7-15.3); LYMPH % 12.4 % (8-40); MCH 30.6 pg (25.7-33.7); MCHC 34.5 g/dl (32.0-36.0); MEAN CELL VOLUME 88.8 fl (80-96); MEAN PLT VOLUME 9.2 fl (7.5-11.1); NEUT % 74.1 % (42.8-82.8); PLATELET COUNT 215 K/MM3 (134-434); RBC 3.71 M/mm3 (3.60-5.2); RDW 15.6 % (11.6-15.6); WHITE BLOOD COUNT 8.5 K/mm3 (4.0-10.0)
[2018-07-12 08:16] LABS: ANION GAP 10 MMOL/L (8-16); BLOOD UREA NITROGEN 35 mg/dL (7-18); CALCIUM 8.4 mg/dL (8.5-10.1); CHLORIDE 114 mmol/L (98-107); CO2 23 mmol/L (21-32); GLUCOSE,RANDOM 92 mg/dL (74-106); POTASSIUM 4.1 mmol/L (3.5-5.1); SODIUM 146 mmol/L (136-145)
[2018-07-12] MEDS: ASPIRIN COATED 81 MG TABLET.EC PO SCH (09:03)
[2018-07-12] MEDS ORDERED: cefTRIAXone SODIUM 1 GM VIAL ONE (10:19)
[2018-07-12] MEDS ORDERED: DEXTROSE 5%-WATER - 50 ML IVPB ONE (10:19)
[2018-07-12] MEDS ORDERED: PT OWN MED DRAWER 7, Y5N ONE (10:19)
[2018-07-12] MEDS: ATENOLOL 50 MG TABLET (FP) PO SCH ×2 (10:22→21:53)
[2018-07-12] MEDS: SENNOSIDES/DOCUSATE COMBO (SENNA PLUS) TABLET (UD) PO SCH ×2 (10:22→21:52)
[2018-07-12] MEDS: ALLOPURINOL 100 MG TABLET (FP) PO SCH (10:22)
[2018-07-12] MEDS: FUROSEMIDE 20 MG TABLET (FP) PO SCH (10:22)
[2018-07-12] MEDS: CEFTRIAXONE 1 GM in DEXTROSE 5%-WATER - 50 ML IVPB SCH (10:22)
[2018-07-12] MEDS: PARoxetine HCL 20 MG TABLET (FP) PO SCH (10:22)
[2018-07-12] MEDS: hydrALAZINE HCL 50 MG TABLET (FP) PO SCH ×2 (10:22→21:52)
[2018-07-12] MEDS: MULTIVITAMINS (DAILY MVI) TABLET (FP) PO SCH (10:22)
[2018-07-12] MEDS: FERROUS SO4 325 MG TABLET (FP) PO SCH ×2 (10:22→21:53)
[2018-07-12] MEDS: VALSARTAN 160 MG TABLET (UD) PO SCH (10:22)
[2018-07-12] MEDS: PRAMIPEXOLE DIHYDROCHLORIDE 0.5 MG TABLET PO SCH (10:23)
--- NOTE | 2018-07-12 11:33 | PN ---
Progress Note, Physician Chief Complaint: Pt lying in bed in no acute distress. reports feeling well, have not gotten up. Denies any chest pain, sob, dysuria, n/v/d - Current Medication List Current Medications: Active Medications Acetaminophen (Tylenol -) 650 mg PO Q6HPO [facility] Last Admin: 07/12/18 07:04 Dose: Not Given Allopurinol (Zyloprim -) 100 mg PO DAILY [facility] Last Admin: 07/12/18 10:22 Dose: 100 mg Aspirin (Ecotrin -) 81 mg PO DAILY@0800 [facility] Last Admin: 07/12/18 09:03 Dose: 81 mg Atenolol (Tenormin -) 50 mg PO BID [facility] Last Admin: 07/12/18 10:22 Dose: 50 mg Atorvastatin Calcium (Lipitor -) 10 mg PO HS [facility] Last Admin: 07/11/18 22:17 Dose: 10 mg Ferrous Sulfate (Feosol -) 325 mg PO BID [facility] Last Admin: 07/12/18 10:22 Dose: 325 mg Furosemide (Lasix -) 20 mg PO Q2D [facility] Last Admin: 07/12/18 10:22 Dose: 20 mg Gabapentin (Neurontin -) 100 mg PO HS [facility] Last Admin: 07/11/18 22:17 Dose: 100 mg Hydralazine HCl (Apresoline -) 50 mg PO BID [facility] Last Admin: 07/12/18 10:22 Dose: 50 mg Ceftriaxone Sodium 1 gm/ (Dextrose) 50 mls @ 100 mls/hr IVPB DAILY [facility] Last Admin: 07/12/18 10:22 Dose: 100 mls/hr Multivitamins/Minerals/Vitamin C (Tab-A-Vit -) 1 tab PO DAILY [facility] Last Admin: 07/12/18 10:22 Dose: 1 tab Oxycodone HCl (Roxicodone -) 5 mg PO Q4H PRN PRN Reason: PAIN Paroxetine HCl (Paxil -) 20 mg PO DAILY [facility] Last Admin: 07/12/18 10:22 Dose: 20 mg Pramipexole Dihydrochloride (Mirapex -) 0.5 mg PO DAILY [facility] Last Admin: 07/12/18 10:23 Dose: 0.5 mg Senna/Docusate Sodium (Pericolace -) 1 tablet PO BID [facility] Last Admin: 07/12/18 10:22 Dose: 1 tablet Tramadol HCl (Ultram -) 50 mg PO TID [facility] Last Admin: 07/12/18 07:06 Dose: 50 mg Valsartan (Diovan -) 320 mg PO DAILY [facility] Last Admin: 07/12/18 10:22 Dose: 320 mg - Objective Vital Signs: Vital Signs Temperature 98.3 F 07/12/18 07:05 Pulse Rate 77 07/12/18 07:05 Respiratory Rate 20 07/12/18 07:05 Blood Pressure 180/79 H 07/12/18 07:05 O2 Sat by Pulse Oximetry (%) 98 07/11/18 21:00 Constitutional: Yes: Well Nourished, No Distress, Calm Cardiovascular: Yes: WNL, Regular Rate and Rhythm Respiratory: Yes: WNL, Regular, CTA Bilaterally. No: Accessory Muscle Use, Rhonchi, SOB, Tachypnea, Wheezes Gastrointestinal: Yes: WNL, Normal Bowel Sounds, Soft. No: Distention, Tenderness Genitourinary: Yes: WNL Neurological: Yes: WNL, Alert, Oriented Psychiatric: Yes: WNL, Alert, Oriented Labs: CBC, BMP 07/12/18 06:30 07/12/18 06:30 Problem List - Problems (1) UTI (urinary tract infection) Assessment/Plan: UTI +ecoli ceftriaxone day 3 transition to po upon d/c Code(s): N39.0 - URINARY TRACT INFECTION, SITE NOT SPECIFIED Qualifiers: Urinary tract infection type: acute cystitis Hematuria presence: with hematuria Qualified Code(s): N30.01 - Acute cystitis with hematuria (2) Leukocytosis Assessment/Plan: improved Code(s): D72.829 - ELEVATED WHITE BLOOD CELL COUNT, UNSPECIFIED (3) Weakness Assessment/Plan: 2/2 uti impaired ambulation at home PT eval pending Code(s): R53.1 - WEAKNESS (4) DARYL (acute kidney injury) Assessment/Plan: improved Code(s): N17.9 - ACUTE KIDNEY FAILURE, UNSPECIFIED (5) Anxiety Assessment/Plan: stable Code(s): F41.9 - ANXIETY DISORDER, UNSPECIFIED (6) HLD (hyperlipidemia) Assessment/Plan: stable continue statin Code(s): E78.5 - HYPERLIPIDEMIA, UNSPECIFIED (7) HTN (hypertension) Assessment/Plan: slightly elevated diovan restarted continue home meds cardiology consulted Code(s): I10 - ESSENTIAL (PRIMARY) HYPERTENSION Qualifiers: Hypertension type: essential hypertension Qualified Code(s): I10 - Essential (primary) hypertension (8) CHF (congestive heart failure) Assessment/Plan: chronic continue lasix Code(s): I50.9 - HEART FAILURE, UNSPECIFIED Qualifiers: Heart failure type: diastolic Heart failure chronicity: chronic Qualified Code(s): I50.32 - Chronic diastolic (congestive) heart failure (9) Gout Assessment/Plan: stable continue allopurinol Code(s): M10.9 - GOUT, UNSPECIFIED Qualifiers: Chronicity: chronic Assessment/Plan Dispo: SNF vs home, awaiting PT eval
--- NOTE | 2018-07-12 14:42 | CON.CARD ---
Cardiology Consult (text) - Consultation Consultation Note: - Consultation Consultation Note: CC: weakness, UTI 87 yo with h/o HTN, HLD, anxiety, prior femur fx 2017 and arthritis who p/w weakness, UTI. On abx for UTI, symptoms improved. Noted to have elevated BP. Home meds restarted, initially diovan was held but restarted today and BP initially elevated, now improved control. Per patient she has a history of labile BP, has been an issue as an outpatient as well. No chest pain, palps, dizzy, lightheadedness, dyspnea, edema. Pmhx/Pshx: per hpi, left knee replacement. Social Hx: lives alone in apartment building. Never smoked fam hx: no cardiac hx ros: per phi Home Medications Medication Instructions Recorded Atenolol [Tenormin -] 50 mg PO BID #0 tablet 07/26/13 Atorvastatin Ca [Lipitor] 10 mg PO HS #0 tablet 09/13/13 Paroxetine HCl [Paxil -] 20 mg PO DAILY #0 tablet 09/13/13 Allopurinol [Zyloprim -] 100 mg PO DAILY 11/25/16 Gabapentin [Neurontin -] 100 mg PO HS 11/25/16 [place] Xl 2 cap PO DAILY 11/25/16 Pramipexole Di-HCl [Mirapex] 0.5 mg PO DAILY 11/25/16 Tramadol HCl [Ultram] 50 mg PO TID 11/25/16 Vits A,C,E/Lutein/Minerals 1 each PO DAILY 11/25/16 [Ocuvite with Lutein Tablet] hydrALAZINE HCL [Apresoline -] 50 mg PO BID 11/25/16 Acetaminophen [Tylenol .Regular 650 mg PO Q6H tablet 11/28/16 Strength -] Ferrous Sulfate [Feosol] 325 mg PO BID #90 11/28/16 Multivitamins [Multivit ([facility] 1 tab PO DAILY tab 11/28/16 Formulary)] Sennosides/Docusate Sodium 1 tablet PO BID tablet 11/28/16 [Pericolace -] oxyCODONE HCL [Roxicodone -] 5 mg PO Q4H PRN #0 tablet MDD 6 11/28/16 Aspirin Coated [Ecotrin -] 81 mg PO DAILY@0800 #0 tablet.ec 02/15/18 Furosemide [Lasix -] 20 mg PO Q2D #30 tablet 02/15/18 Valsartan [Diovan] 320 mg PO DAILY #60 tablet 02/15/18 Current Medications Acetaminophen (Tylenol -) 650 mg PO Q6HPO [facility] Last Admin: 07/12/18 07:04 Dose: Not Given Allopurinol (Zyloprim -) 100 mg PO DAILY [facility] Last Admin: 07/12/18 10:22 Dose: 100 mg Aspirin (Ecotrin -) 81 mg PO DAILY@0800 [facility] Last Admin: 07/12/18 09:03 Dose: 81 mg Atenolol (Tenormin -) 50 mg PO BID [facility] Last Admin: 07/12/18 10:22 Dose: 50 mg Atorvastatin Calcium (Lipitor -) 10 mg PO HS [facility] Last Admin: 07/11/18 22:17 Dose: 10 mg Ferrous Sulfate (Feosol -) 325 mg PO BID [facility] Last Admin: 07/12/18 10:22 Dose: 325 mg Furosemide (Lasix -) 20 mg PO Q2D [facility] Last Admin: 07/12/18 10:22 Dose: 20 mg Gabapentin (Neurontin -) 100 mg PO HS [facility] Last Admin: 07/11/18 22:17 Dose: 100 mg Hydralazine HCl (Apresoline -) 50 mg PO BID [facility] Last Admin: 07/12/18 10:22 Dose: 50 mg Ceftriaxone Sodium 1 gm/ (Dextrose) 50 mls @ 100 mls/hr IVPB DAILY [facility] Last Admin: 07/12/18 10:22 Dose: 100 mls/hr Lactobacillus Acidophilus (Bacid -) 1 tab PO DAILY [facility] Multivitamins/Minerals/Vitamin C (Tab-A-Vit -) 1 tab PO DAILY [facility] Last Admin: 07/12/18 10:22 Dose: 1 tab Oxycodone HCl (Roxicodone -) 5 mg PO Q4H PRN PRN Reason: PAIN Paroxetine HCl (Paxil -) 20 mg PO DAILY [facility] Last Admin: 07/12/18 10:22 Dose: 20 mg Pramipexole Dihydrochloride (Mirapex -) 0.5 mg PO DAILY [facility] Last Admin: 07/12/18 10:23 Dose: 0.5 mg Senna/Docusate Sodium (Pericolace -) 1 tablet PO BID [facility] Last Admin: 07/12/18 10:22 Dose: 1 tablet Tramadol HCl (Ultram -) 50 mg PO TID [facility] Last Admin: 07/12/18 07:06 Dose: 50 mg Valsartan (Diovan -) 320 mg PO DAILY [facility] Last Admin: 07/12/18 10:22 Dose: 320 mg Vital Signs Period Temp Pulse Resp BP Sys/Barr Pulse Ox Last 24 Hr 97.5 F-98.3 F 68-77 18-20 138-180/74-83 98-98 NAD, anxious no JVD neck supple trace rales at right base, nl effort rrr nl s1, s2. no mrg + bs soft nt nd ext without e/c/c + dp/pt, no carotid bruits no jaundice, diaphoresis aaox3 Laboratory Results - last 24 hr 07/12/18 07/12/18 06:30 06:30 WBC 8.5 RBC 3.71 Hgb 11.4 Hct 32.9 MCV 88.8 MCH 30.6 MCHC 34.5 RDW 15.6 Plt Count 215 MPV 9.2 Absolute Neuts (auto) 6.3 Neutrophils % 74.1 Lymphocytes % 12.4 Monocytes % 8.0 Eosinophils % 4.7 H Basophils % 0.8 Nucleated RBC % 0 Sodium 146 H Potassium 4.1 Chloride 114 H Carbon Dioxide 23 Anion Gap 10 BUN 35 H Creatinine 1.0 Creat Clearance w eGFR 52.33 Random Glucose 92 Calcium 8.4 L EKG: poor baseline. SR. early r wave progression. no ischemic changes tele: sr dena stress 05/2017: no ischemic ekg changes. nl perfusion. nl EF. cxr: no acute pathology. ASSESSMENT/PLAN 87 yo with h/o HTN, HLD, anxiety, prior femur fx 2016 and arthritis who p/w HTN - initially diovan was held due to DARYL, restarted today, BP remained elevated initially now improved - on atenolol, hydralazine and diovan - has a history of labile BPs, would monitor and continue current doses, avoid lows hld - con't statin and low dose asa for primary prevention. Chronic diastolic HF - stable, euvolemic - continue lasix every other day
[2018-07-12] MEDS: LACTOBACILLUS ACIDOPHILUS 1 TABLET PO SCH (15:29)
[2018-07-12] MEDS: GABAPENTIN 100 MG CAPSULE (FP) PO SCH (21:52)
[2018-07-12] MEDS: ATORVASTATIN CA 10 MG TABLET (FP) PO SCH (21:53)
[2018-07-13] MEDS: ACETAMINOPHEN 325 MG TABLET (FP) PO SCH ×6 (00:16→18:02)
[2018-07-13 05:45] LABS: BASO % 1.2 % (0-2.0); EOS % 7.2 % (0-4.5); HEMATOCRIT 32.7 % (32.4-45.2); HEMOGLOBIN 11.1 GM/dL (10.7-15.3); LYMPH % 18.2 % (8-40); MCH 30.2 pg (25.7-33.7); MEAN CELL VOLUME 88.8 fl (80-96); MEAN PLT VOLUME 9.3 fl (7.5-11.1); MONO % 9.2 % (3.8-10.2); NEUT % 64.2 % (42.8-82.8); PLATELET COUNT 222 K/MM3 (134-434); RBC 3.69 M/mm3 (3.60-5.2); RDW 15.5 % (11.6-15.6); WHITE BLOOD COUNT 7.3 K/mm3 (4.0-10.0)
[2018-07-13 06:06] LABS: ANION GAP 7 MMOL/L (8-16); BLOOD UREA NITROGEN 29 mg/dL (7-18); CALCIUM 8.3 mg/dL (8.5-10.1); CHLORIDE 112 mmol/L (98-107); CO2 23 mmol/L (21-32); GLUCOSE,RANDOM 87 mg/dL (74-106); POTASSIUM 3.9 mmol/L (3.5-5.1); SODIUM 142 mmol/L (136-145)
[2018-07-13] MEDS: traMADol HCL 50 MG TABLET PO SCH ×3 (06:11→21:12)
[2018-07-13] MEDS ORDERED: PT OWN MED DRAWER 7, Y5N ONE (09:34)
[2018-07-13] MEDS ORDERED: cefTRIAXone SODIUM 1 GM VIAL ONE (09:35)
[2018-07-13] MEDS ORDERED: DEXTROSE 5%-WATER - 50 ML IVPB ONE (09:35)
[2018-07-13] MEDS: CEFTRIAXONE 1 GM in DEXTROSE 5%-WATER - 50 ML IVPB SCH (10:02)
[2018-07-13] MEDS: ASPIRIN COATED 81 MG TABLET.EC PO SCH (10:02)
[2018-07-13] MEDS: FERROUS SO4 325 MG TABLET (FP) PO SCH ×2 (10:03→21:11)
[2018-07-13] MEDS: hydrALAZINE HCL 50 MG TABLET (FP) PO SCH ×2 (10:03→21:12)
[2018-07-13] MEDS: ALLOPURINOL 100 MG TABLET (FP) PO SCH (10:03)
[2018-07-13] MEDS: SENNOSIDES/DOCUSATE COMBO (SENNA PLUS) TABLET (UD) PO SCH ×2 (10:03→21:11)
[2018-07-13] MEDS: VALSARTAN 160 MG TABLET (UD) PO SCH (10:03)
[2018-07-13] MEDS: PARoxetine HCL 20 MG TABLET (FP) PO SCH (10:03)
[2018-07-13] MEDS: ATENOLOL 50 MG TABLET (FP) PO SCH ×2 (10:03→21:11)
[2018-07-13] MEDS: MULTIVITAMINS (DAILY MVI) TABLET (FP) PO SCH (10:03)
[2018-07-13] MEDS: LACTOBACILLUS ACIDOPHILUS 1 TABLET PO SCH (10:03)
[2018-07-13] MEDS: PRAMIPEXOLE DIHYDROCHLORIDE 0.5 MG TABLET PO SCH (10:04)
--- NOTE | 2018-07-13 11:06 | DS ---
Physical Examination Vital Signs: Vital Signs Temperature 98.1 F 07/13/18 06:59 Pulse Rate 65 07/13/18 06:59 Respiratory Rate 20 07/13/18 06:59 Blood Pressure 147/72 07/13/18 06:59 O2 Sat by Pulse Oximetry (%) 93 L 07/12/18 22:00 Constitutional: Yes: Well Nourished, No Distress, Calm Cardiovascular: Yes: Regular Rate and Rhythm Respiratory: Yes: WNL, Regular, CTA Bilaterally Gastrointestinal: Yes: WNL, Normal Bowel Sounds, Soft, Abdomen, Obese. No: Distention, Tenderness Renal/: Yes: WNL Musculoskeletal: Yes: WNL Extremities: Yes: WNL Edema: No Neurological: Yes: WNL, Alert, Oriented Psychiatric: Yes: WNL, Alert, Oriented Labs: CBC, BMP 07/13/18 05:10 07/13/18 05:10 Discharge Summary Reason For Visit: SEPSIS Current Active Problems DRAYL (acute kidney injury) (Acute) Acute kidney injury superimposed on CKD (Acute) CHF (congestive heart failure) (Acute) Dehydration (Acute) Hyperkalemia (Acute) Leukocytosis (Acute) UTI (urinary tract infection) (Acute) Weakness (Acute) Hospital Course: 87 year old female admitted for generalized weakness/ impaired ambulation at home. Pt found to have UTI-ecoli, received 4 days of ceftriaxone, transitioned to po antibx today to complete 7 day course. Leukocytosis/DARYL resolved. Pt ambulating with PT, will benefit from TIFFANY. BP elevations stable, improved after restarting cardizem. Pt is medically stable for discharge to SNF. F/u as directed. Case discussed with SW, informed of discharge needs. 32 minutes spent in discharge planning. Condition: Improved - Instructions Diet, Activity, Other Instructions: activity as tolerated antibx 3 more day to complete 7 day course f/u as directed Referrals: Samson Marshall MD [Staff Physician] - 1 Week Tigist Escalante MD [Staff Physician] - 2 Weeks [facility]position[facility] - Home Medications Comprehensive Discharge Medication List: Ambulatory Orders Atenolol [Tenormin -] 50 mg PO BID #0 tablet 07/26/13 Atorvastatin Ca [Lipitor] 10 mg PO HS #0 tablet 09/13/13 Paroxetine HCl [Paxil -] 20 mg PO DAILY #0 tablet 09/13/13 Allopurinol [Zyloprim -] 100 mg PO DAILY 11/25/16 Gabapentin [Neurontin -] 100 mg PO HS 11/25/16 [place] Xl 2 cap PO DAILY 11/25/16 Pramipexole Di-HCl [Mirapex] 0.5 mg PO DAILY 11/25/16 Tramadol HCl [Ultram] 50 mg PO TID 11/25/16 Vits A,C,E/Lutein/Minerals [Ocuvite with Lutein Tablet] 1 each PO DAILY hydrALAZINE HCL [Apresoline -] 50 mg PO BID 11/25/16 Acetaminophen [Tylenol .Regular Strength -] 650 mg PO Q6H tablet 11/28/16 Ferrous Sulfate [Feosol] 325 mg PO BID #90 11/28/16 Multivitamins [Multivit ([facility] Formulary)] 1 tab PO DAILY tab 11/28/16 Sennosides/Docusate Sodium [Pericolace -] 1 tablet PO BID tablet 11/28/16 oxyCODONE HCL [Roxicodone -] 5 mg PO Q4H PRN #0 tablet MDD 6 11/28/16 Aspirin Coated [Ecotrin -] 81 mg PO DAILY@0800 #0 tablet.ec 02/15/18 Furosemide [Lasix -] 20 mg PO Q2D #30 tablet 02/15/18 Valsartan [Diovan] 320 mg PO DAILY #60 tablet 02/15/18 Cephalexin [Keflex] 500 mg PO BID 3 Days capsule 07/13/18
[2018-07-13] MEDS: GABAPENTIN 100 MG CAPSULE (FP) PO SCH (21:11)
[2018-07-13] MEDS: ATORVASTATIN CA 10 MG TABLET (FP) PO SCH (21:12)
[2018-07-14] MEDS: ACETAMINOPHEN 325 MG TABLET (FP) PO SCH ×2 (00:39→05:32)
[2018-07-14] MEDS: traMADol HCL 50 MG TABLET PO SCH (05:31)
[2018-07-14] MEDS ORDERED: DEXTROSE 5%-WATER - 50 ML IVPB ONE (09:04)
[2018-07-14] MEDS ORDERED: cefTRIAXone SODIUM 1 GM VIAL ONE (09:04)
[2018-07-14] MEDS: VALSARTAN 160 MG TABLET (UD) PO SCH (09:16)
[2018-07-14] MEDS: LACTOBACILLUS ACIDOPHILUS 1 TABLET PO SCH (09:16)
[2018-07-14] MEDS: PARoxetine HCL 20 MG TABLET (FP) PO SCH (09:17)
[2018-07-14] MEDS: FUROSEMIDE 20 MG TABLET (FP) PO SCH (09:17)
[2018-07-14] MEDS: hydrALAZINE HCL 50 MG TABLET (FP) PO SCH (09:17)
[2018-07-14] MEDS: ATENOLOL 50 MG TABLET (FP) PO SCH (09:17)
[2018-07-14] MEDS: ALLOPURINOL 100 MG TABLET (FP) PO SCH (09:17)
[2018-07-14] MEDS: ASPIRIN COATED 81 MG TABLET.EC PO SCH (09:17)
[2018-07-14] MEDS: SENNOSIDES/DOCUSATE COMBO (SENNA PLUS) TABLET (UD) PO SCH (09:17)
[2018-07-14] MEDS: FERROUS SO4 325 MG TABLET (FP) PO SCH (09:17)
[2018-07-14] MEDS: PRAMIPEXOLE DIHYDROCHLORIDE 0.5 MG TABLET PO SCH (09:17)
[2018-07-14] MEDS: MULTIVITAMINS (DAILY MVI) TABLET (FP) PO SCH (09:17)
[2018-07-14] MEDS: CEFTRIAXONE 1 GM in DEXTROSE 5%-WATER - 50 ML IVPB SCH (09:19)
--- NOTE | 2018-07-14 10:01 | PN ---
Progress Note (short form) - Note Progress Note: Pt seen at bedside, sitting in bed in no acute distress. going to snf this am. no acute events overnight. Problem List - Problems (1) UTI (urinary tract infection) Code(s): N39.0 - URINARY TRACT INFECTION, SITE NOT SPECIFIED Qualifiers: Urinary tract infection type: acute cystitis Hematuria presence: with hematuria Qualified Code(s): N30.01 - Acute cystitis with hematuria (2) Leukocytosis Code(s): D72.829 - ELEVATED WHITE BLOOD CELL COUNT, UNSPECIFIED (3) Weakness Code(s): R53.1 - WEAKNESS (4) DARYL (acute kidney injury) Code(s): N17.9 - ACUTE KIDNEY FAILURE, UNSPECIFIED (5) Anxiety Code(s): F41.9 - ANXIETY DISORDER, UNSPECIFIED (6) HLD (hyperlipidemia) Code(s): E78.5 - HYPERLIPIDEMIA, UNSPECIFIED (7) HTN (hypertension) Code(s): I10 - ESSENTIAL (PRIMARY) HYPERTENSION Qualifiers: Hypertension type: essential hypertension Qualified Code(s): I10 - Essential (primary) hypertension (8) CHF (congestive heart failure) Code(s): I50.9 - HEART FAILURE, UNSPECIFIED Qualifiers: Heart failure type: diastolic Heart failure chronicity: chronic Qualified Code(s): I50.32 - Chronic diastolic (congestive) heart failure (9) Gout Code(s): M10.9 - GOUT, UNSPECIFIED Qualifiers: Chronicity: chronic
[2018-07-14 11:18] VITALS: BP 151/70; PULSE 70; TEMP 98.5
== END 2018-07-14 10:57 | DRG 690 ==
LOC: JER 11:50 → JERBED 14:18 → J8W 15:56
PROVIDERS: ADMIT Internal Medicine; ATTEND Internal Medicine
DX: N39.0 Urinary tract infection, site not specified (principal); N17.9 Acute kidney failure, unspecified; I13.0 Hypertensive heart and chronic kidney disease with heart failure and stage 1 through stage 4 chronic kidney disease, or unspecified chronic kidney disease; I50.32 Chronic diastolic (congestive) heart failure; B96.20 Unspecified Escherichia coli [E. coli] as the cause of diseases classified elsewhere; R00.0 Tachycardia, unspecified; I10 Essential (primary) hypertension; E78.5 Hyperlipidemia, unspecified; N18.3 Chronic kidney disease, stage 3 (moderate); F41.9 Anxiety disorder, unspecified; K21.9 Gastro-esophageal reflux disease without esophagitis; D72.829 Elevated white blood cell count, unspecified; K29.70 Gastritis, unspecified, without bleeding; E66.9 Obesity, unspecified; Z68.29 Body mass index [BMI] 29.0-29.9, adult; M54.5 Low back pain; E86.0 Dehydration; E87.5 Hyperkalemia; M10.9 Gout, unspecified; Z96.642 Presence of left artificial hip joint; Z96.612 Presence of left artificial shoulder joint; Z96.652 Presence of left artificial knee joint
CPT/HCPCS: 36415; 71045-TC-FY; 80048; 80053; 81003; 81015; 83735; 85025; 87086; 87186; 93005; 93010; 97116-GP; 97161-GP; 99282-25; J7030